=== PATIENT | female | born 1995 | race Caucasian/White ===

== ENCOUNTER 2024-04-11 19:59 | Emergency (ER) | payer OTHER, MEDICARE ==
[2024-04-11] MEDS: 0.9%NACL 1000ML 1,000 ML IV ONE (20:24)
[2024-04-11 20:41] LABS: ABG BASE EXCESS 1.5 mmol/L (-2.0-3.0); ABG HCO3 25.2 mmol/L (21.0-28.0); ABG OXYGEN SATURATION 96.9 % (95.0-99.0); ABG PCO2 36 mmHg (32-45); ABG PH 7.458 (7.350-7.450); CARBON MONOXIDE 0.3; DEVICE COMMENT RA LR; HHb 3.1; PO2, ARTERIAL BG 87.2 mmHg (83.0-108.0)
[2024-04-11 20:50] LABS: BASOPHILS # (AUTO) 0.05 K/uL (0.00-0.20); BASOPHILS % (AUTO) 0.6 % (0.0-5.0); EOSINOPHILS # (AUTO) 0.43 K/uL (0.00-0.70); IMMATURE GRANULOCYTE ABSOLUTE 0.07 K/uL (0-1); LYMPHOCYTES # (AUTO) 2.5 K/uL (1.0-4.8); LYMPHOCYTES % (AUTO) 28.9 % (21.0-51.0); MEAN CORPUSCULAR HEMOGLOBIN 30.3 pg (27.0-33.0); MEAN CORPUSCULAR HGB CONC 34.5 g/dL (32.0-36.0); MEAN CORPUSCULAR VOLUME 87.8 fL (79-99); MONOCYTES # (AUTO) 0.6 K/uL (0.1-1.0); MONOCYTES % (AUTO) 6.8 % (3.0-13.0); NEUTROPHILS % (AUTO) 57.9 % (40.0-77.0); PLATELET COUNT (AUTO) 255 K/uL (130-400); RED BLOOD CELL COUNT(AUTO) 3.76 MIL/uL (4.00-5.50); RED CELL DISTRIBUTION WIDTH 12.4 % (11.0-15.5); WHITE BLOOD COUNT (AUTO) 8.6 K/uL (4.8-10.8)
[2024-04-11 20:54] LABS: APPEARANCE,URINE CLEAR (CLEAR); BILIRUBIN,URINE NEGATIVE (NEGATIVE); COLOR,URINE LIGHT-YELLOW (YELLOW); GLUCOSE, URINE (UA) >=1000 mg/dL (NEGATIVE); KETONES,URINE NEGATIVE (NEGATIVE); LEUKOCYTE ESTERASE ,URINE 75 Leu/uL (NEGATIVE); MUCUS,URINE RARE LPF (None Seen); NITRATE,URINE NEGATIVE (NEGATIVE); OCCULT BLOOD,URINE MODERATE (NEGATIVE); PH,URINE 5.5 (5.0-8.0); PROTEIN,URINE 10 mg/dL (NEGATIVE); SQUAMOUS EPITHELIAL CELL,UR FEW /HPF (0-2); UROBILINOGEN,URINE 0.2 mg/dL (0.2-1.0)
[2024-04-11 21:18] LABS: CARBON DIOXIDE 26 mmol/L (21-32); CHLORIDE 99 mmol/L (101-111); CREATININE 0.8 mg/dL (0.5-1.0); GLOMERULAR FILTR. RATE CALC 104 mL/min (>90); GLUCOSE,RANDOM 224 mg/dL (70-105); POTASSIUM 3.8 mmol/L (3.5-5.1); SODIUM SERUM 137 mmol/L (136-145); UREA NITROGEN, BLOOD 13 mg/dL (7-18)
[2024-04-11 21:22] LABS: ALANINE AMINOTRANSFERASE 105 U/L (12-78); ALBUMIN 3.9 g/dL (3.5-5.0); ASPARTATE AMINOTRANSFERASE 74 U/L (10-37); BILIRUBIN,TOTAL 0.3 mg/dL (0.2-1.0); TOTAL PROTEIN, SERUM 7.6 g/dL (6.0-8.3)
[2024-04-11] MEDS ORDERED: CEPH500B PO (21:36)
[2024-04-11 22:11] VITALS: BP 131/80; PULSE 99; RESP 18; O2SAT 97
== END 2024-04-11 22:19 | disposition home or self-care (01) ==
LOC: EDH 19:59
DX: E11.65 Type 2 diabetes mellitus with hyperglycemia (principal); N39.0 Urinary tract infection, site not specified; Z88.1 Allergy status to other antibiotic agents
CPT/HCPCS: 36415; 36600; 80053; 81001; 82010; 82435; 82803; 82947; 82948; 83605; 84132; 84295; 85018; 85025; 87086

== ENCOUNTER 2024-04-23 23:54 | Emergency (ER) | payer OTHER, MEDICARE ==
[~2024-04-23] VITALS: Ht 165.1 cm; Wt 94.3 kg
[~2024-04-23 23:54] MED LIST: CEPH500B PO
[2024-04-23 23:55] VITALS: BP 124/78; PULSE 90; RESP 16; O2SAT 98
[2024-04-24 00:28] LABS: APPEARANCE,URINE CLOUDY (CLEAR); BILIRUBIN,URINE NEGATIVE (NEGATIVE); COLOR,URINE YELLOW (YELLOW); GLUCOSE, URINE (UA) 70 mg/dL (NEGATIVE); HCG,QUALITATIVE URINE NEGATIVE (NEGATIVE); KETONES,URINE NEGATIVE (NEGATIVE); LEUKOCYTE ESTERASE ,URINE 500 Leu/uL (NEGATIVE); NITRATE,URINE NEGATIVE (NEGATIVE); OCCULT BLOOD,URINE MODERATE (NEGATIVE); PROTEIN,URINE 70 mg/dL (NEGATIVE)
[2024-04-24 00:35] LABS: ADD UA MICROSCOPIC YES
[2024-04-24 00:36] LABS: BACTERIA,URINE MOD /HPF (None Seen); MUCUS,URINE MANY LPF (None Seen); RBC,URINE 26-50 /HPF (0-1); SQUAMOUS EPITHELIAL CELL,UR MANY /HPF (0-2); WBC,URINE 26-50 /HPF (0-1)
[2024-04-24] MEDS ORDERED: CEPH500B PO (00:42)
[2024-04-24] MEDS: CEFTRIAXONE 1G VIAL IM ONE (00:47)
== END 2024-04-24 00:53 | disposition home or self-care (01) ==
LOC: EDH 23:54
DX: N39.0 Urinary tract infection, site not specified (principal); E11.9 Type 2 diabetes mellitus without complications; F84.0 Autistic disorder; I10 Essential (primary) hypertension; F32.A Depression, unspecified; Z88.1 Allergy status to other antibiotic agents; Z79.899 Other long term (current) drug therapy; Z90.89 Acquired absence of other organs
CPT/HCPCS: 99283; 87086; 81001; 81025; 96372; J0696

== ENCOUNTER 2024-04-26 09:56 | Emergency (ER) | payer OTHER, MEDICARE ==
[~2024-04-26] VITALS: Ht 165.1 cm; Wt 94.3 kg
[2024-04-26 09:58] VITALS: BP 144/88; PULSE 98; RESP 18
[2024-04-26 10:38] LABS: BASOPHILS # (AUTO) 0.03 K/uL (0.00-0.20); BASOPHILS % (AUTO) 0.4 % (0.0-5.0); EOSINOPHILS % (AUTO) 1.4 % (0.0-8.0); HEMATOCRIT 35.5 % (36-48); IMMATURE GRANULOCYTE ABSOLUTE 0.02 K/uL (0-1); LYMPHOCYTES # (AUTO) 2.2 K/uL (1.0-4.8); LYMPHOCYTES % (AUTO) 30.7 % (21.0-51.0); MEAN CORPUSCULAR HEMOGLOBIN 30.1 pg (27.0-33.0); MEAN CORPUSCULAR HGB CONC 34.6 g/dL (32.0-36.0); MEAN CORPUSCULAR VOLUME 86.8 fL (79-99); MONOCYTES # (AUTO) 0.4 K/uL (0.1-1.0); MONOCYTES % (AUTO) 6.1 % (3.0-13.0); NEUTROPHILS # (AUTO) 4.3 K/uL (1.8-7.7); NEUTROPHILS % (AUTO) 61.1 % (40.0-77.0); PLATELET COUNT (AUTO) 229 K/uL (130-400); RED BLOOD CELL COUNT(AUTO) 4.09 MIL/uL (4.00-5.50); RED CELL DISTRIBUTION WIDTH 11.8 % (11.0-15.5)
[2024-04-26 10:41] LABS: APPEARANCE,URINE TURBID (CLEAR); BILIRUBIN,URINE NEGATIVE (NEGATIVE); COLOR,URINE LIGHT-ORANGE (YELLOW); GLUCOSE, URINE (UA) NEGATIVE (NEGATIVE); KETONES,URINE 5 mg/dL (NEGATIVE); LEUKOCYTE ESTERASE ,URINE 500 Leu/uL (NEGATIVE); NITRATE,URINE NEGATIVE (NEGATIVE); OCCULT BLOOD,URINE LARGE (NEGATIVE); PH,URINE 5.5 (5.0-8.0); PROTEIN,URINE 100 mg/dL (NEGATIVE); UROBILINOGEN,URINE 0.2 mg/dL (0.2-1.0)
[2024-04-26 10:42] LABS: ADD UA MICROSCOPIC YES
[2024-04-26 10:44] LABS: BACTERIA,URINE FEW /HPF (None Seen); MUCUS,URINE MOD LPF (None Seen); RBC,URINE TNTC /HPF (0-1); SQUAMOUS EPITHELIAL CELL,UR MANY /HPF (0-2); TRANSITIONAL EPI CELLS,URINE MOD /HPF (None Seen); WBC CLUMP FEW /HPF (0-1); WBC,URINE 51-100 /HPF (0-1); YEAST,URINE BUDDING RARE /HPF (None Seen)
[2024-04-26 10:47] LABS: CREATININE 0.6 mg/dL (0.5-1.0); POTASSIUM 3.9 mmol/L (3.5-5.1)
[2024-04-26] MEDS ORDERED: LEVO750T68 PO (11:54)
== END 2024-04-26 12:05 | disposition home or self-care (01) ==
LOC: EDH 09:56
DX: N39.0 Urinary tract infection, site not specified (principal); R31.9 Hematuria, unspecified; E11.9 Type 2 diabetes mellitus without complications; I10 Essential (primary) hypertension; F84.0 Autistic disorder; F32.A Depression, unspecified; Z79.899 Other long term (current) drug therapy; Z88.1 Allergy status to other antibiotic agents; Z90.89 Acquired absence of other organs
CPT/HCPCS: 36415; 74176; 80048; 81001; 81025; 85025

== ENCOUNTER 2024-04-30 06:20 | Emergency (ER) | payer OTHER, MEDICARE ==
[~2024-04-30] VITALS: Ht 165.1 cm; Wt 87.5 kg
[~2024-04-30 06:20] MED LIST changes: +LEVO750T68 PO
[2024-04-30 06:33] VITALS: BP 111/81
[2024-04-30] MEDS: 0.9%NACL 1000ML 1,000 ML IV ONE (07:59)
[2024-04-30 08:11] LABS: APPEARANCE,URINE CLEAR (CLEAR); BILIRUBIN,URINE NEGATIVE (NEGATIVE); COLOR,URINE LIGHT-YELLOW (YELLOW); GLUCOSE, URINE (UA) NEGATIVE (NEGATIVE); KETONES,URINE NEGATIVE (NEGATIVE); LEUKOCYTE ESTERASE ,URINE NEGATIVE Leu/uL (NEGATIVE); NITRATE,URINE NEGATIVE (NEGATIVE); OCCULT BLOOD,URINE MODERATE (NEGATIVE); PROTEIN,URINE NEGATIVE (NEGATIVE); UROBILINOGEN,URINE 0.2 mg/dL (0.2-1.0)
[2024-04-30 08:19] LABS: BACTERIA,URINE RARE /HPF (None Seen); MUCUS,URINE RARE LPF (None Seen); SQUAMOUS EPITHELIAL CELL,UR RARE /HPF (0-2); WBC,URINE 0-1 /HPF (0-1)
[2024-04-30 08:23] LABS: BASOPHILS # (AUTO) 0.03 K/uL (0.00-0.20); BASOPHILS % (AUTO) 0.3 % (0.0-5.0); EOSINOPHILS # (AUTO) 0.05 K/uL (0.00-0.70); EOSINOPHILS % (AUTO) 0.5 % (0.0-8.0); HEMATOCRIT 35.9 % (36-48); IMMATURE GRANULOCYTE ABSOLUTE 0.03 K/uL (0-1); LYMPHOCYTES # (AUTO) 2.1 K/uL (1.0-4.8); MEAN CORPUSCULAR HGB CONC 34.5 g/dL (32.0-36.0); MEAN CORPUSCULAR VOLUME 86.9 fL (79-99); MONOCYTES # (AUTO) 0.4 K/uL (0.1-1.0); NEUTROPHILS # (AUTO) 7.7 K/uL (1.8-7.7); NEUTROPHILS % (AUTO) 74.9 % (40.0-77.0); PLATELET COUNT (AUTO) 216 K/uL (130-400); RED BLOOD CELL COUNT(AUTO) 4.13 MIL/uL (4.00-5.50); RED CELL DISTRIBUTION WIDTH 11.7 % (11.0-15.5); WHITE BLOOD COUNT (AUTO) 10.3 K/uL (4.8-10.8)
[2024-04-30 08:39] LABS: BILIRUBIN,TOTAL 0.4 mg/dL (0.2-1.0); CREATININE 0.7 mg/dL (0.5-1.0); POTASSIUM 4.2 mmol/L (3.5-5.1); TOTAL PROTEIN, SERUM 7.3 g/dL (6.0-8.3)
[2024-04-30 08:58] VITALS: PULSE 95; RESP 17; O2SAT 100
== END 2024-04-30 09:20 | disposition home or self-care (01) ==
LOC: EDH 06:20
DX: E86.0 Dehydration (principal); T43.215A Adverse effect of selective serotonin and norepinephrine reuptake inhibitors, initial encounter; E11.9 Type 2 diabetes mellitus without complications; I10 Essential (primary) hypertension; F84.0 Autistic disorder; Z79.899 Other long term (current) drug therapy; Z88.1 Allergy status to other antibiotic agents; Z90.89 Acquired absence of other organs; Y92.89 Other specified places as the place of occurrence of the external cause
CPT/HCPCS: 99284; 96360; 80053; 85025; 87086; 81001; 36415; J7030

== ENCOUNTER 2024-08-29 15:40 | Emergency (ER) | payer OTHER, MEDICARE ==
[~2024-08-29] VITALS: Ht 167.6 cm; Wt 81.6 kg
[2024-08-29 15:40] VITALS: TEMP 98.4
--- NOTE | 2024-08-29 16:34 | ERN ---
General Chief Complaint: Nausea,Vomiting,Diarrhea Stated Complaint: NAUSEA VOMITING Time Seen by MD: 15:40 Time Seen by Midlevel: 15:40 Source: patient History of Present Illness Initial Comments Patient is a 21-year-old female with a past medical history of type 2 diabetes presenting to the emergency department with nausea and vomiting. Patient states that two days ago she ate a taco from [employer]. Shortly after she developed vomiting. Initially she thought it was because she had eaten the taco but she continued to have episodes of vomiting for the next two days. Denies any fever, diarrhea, bloody stool, or any other symptom at this time. She does report having an insulin pump. Her sugar earlier today was high so she decided to report to the ER for further evaluation given that she has a history of DKA. Allergies: Coded Allergies: azithromycin (Unverified Allergy, Unknown, 04/11/24) Home Meds Active Scripts Famotidine (Pepcid) 20 Mg Tablet, 1 TAB PO BID for 7 Days, #14 TAB 0 Refills Prov:CHRISTIANO FOWLER 08/29/24 Ondansetron (Ondansetron Odt) 4 Mg Tab.rapdis, 4 MG PO BID for 7 Days, #14 TAB Prov:CHRISTIANO FOWLER 08/29/24 Sulfamethoxazole/Trimethoprim (Bactrim Ds Tablet) 800 Mg-160 Mg Tablet, 1 TAB PO BID for 7 Days, #14 TAB 0 Refills Prov:CHRISTIANO FOWLER 08/29/24 Levofloxacin (Levaquin 750Mg Tabs) 750 Mg Tablet, 250 MG PO DAILY for 10 Days, #10 TAB 0 Refills Prov:AMBROCIO SENIOR NP 04/26/24 Cephalexin Monohydrate (Keflex) 500 Mg Cap, 500 MG PO QID for 7 Days, #28 CAP Prov:AKIL STONER MD 04/24/24 Cephalexin Monohydrate (Keflex) 500 Mg Cap, 500 MG PO TID for 7 Days, #21 CAP Prov:AKIL STONER MD 04/11/24 Past Medical History Past Medical History: Anxiety, Diabetes-Type II Medical History Other: AUTISM, PTSD Past Surgical History: None Social History Social History: Negative ROS Dictation CONSTITUTIONAL: Negative except for HPI HEAD/FACE: Negative except for HPI EENT: Negative except for HPI RESPIRATORY: Negative except for HPI GASTROINTESTINAL/ABDOMINAL: Negative except for HPI GENITOURINARY: Negative except for HPI MUSCULOSKELETAL: Negative except for HPI INTEGUMENTARY: Negative except for HPI NEUROLOGICAL/PSYCH: Negative except for HPI HEMATOLOGIC/LYMPHATIC: Negative except for HPI All Systems Negative, Except as noted above. 13 point review of systems assessed and all negative except for above. Physical Exam Physical Exam Dictation Vital Signs reviewed General Appearance: Alert, oriented x 3, no acute distress, well developed, nourished. Head and Face: non-traumatic. Eyes: PERRL, pink conjunctivas, eyelid no trauma, anterior chamber with arcus senilis. Ears: Pinnas intact and no signs of trauma or erythema ear canals clear and no discharge TM no erythema Nose: No discharge, no bleeding. Oropharynx: Mouth normal, tongue pink, pharynx clear,no erythema, tonsils no exudates, no abscesses noted, mucous membrane moist Neck: Supple, non-tender, no thyromegaly, no masses, no JVD, no bruits Breast:Deferred Chest:No tenderness, no crepitus, no paradoxical movement, no retractions Lungs:Clear, well-ventilated, symmetric, no rales, no wheezing, no rhonchi, no stridor, good breath sounds bilaterally Heart: Regular rate, regular rhythm, no murmur, no gallops Vascular: no peripheral edema, Abdomen: Soft, positive bowel sounds, nondistended, no guarding, Mild diffuse abdominal tenderness, no rebound, no masses no hepatomegaly, no splenomegaly, no Lee's sign, no hernias. Rectal: Deferred Genital: Deferred Neurological: Normal speech, motor function intact, sensory function intact Musculoskeletal: Neck nontender, full range of motion, back nontender, full range of motion, Extremities: nontender, full range of motion Skin: Color pink, dry, no turgor, no rash, no lacerations, no abrasions, no contusions. Lymphatic: Deferred Results Laboratory and Microbiology Lab and Micro Result Laboratory Tests Test 08/29/24 17:05 08/29/24 17:57 08/29/24 19:33 08/29/24 20:19 White Blood Count 8.3 K/uL (4.8-10.8) Red Blood Count 4.15 MIL/uL (4.00-5.50) Hemoglobin 12.3 g/dL (12.0-16.0) Hematocrit 37.1 % (36-48) Mean Corpuscular Volume 89.4 fL (79-99) Mean Corpuscular Hemoglobin 29.6 pg (27.0-33.0) Mean Corpuscular Hemoglobin Concent 33.2 g/dL (32.0-36.0) Red Cell Distribution Width 12.2 % (11.0-15.5) Platelet Count 209 K/uL (130-400) Mean Platelet Volume 9.8 fL (7.5-10.5) Immature Granulocyte % (Auto) 0.2 % (0-1) Neutrophils (%) (Auto) 65.6 % (40.0-77.0) Lymphocytes (%) (Auto) 25.3 % (21.0-51.0) Monocytes (%) (Auto) 5.9 % (3.0-13.0) Eosinophils (%) (Auto) 2.2 % (0.0-8.0) Basophils (%) (Auto) 0.8 % (0.0-5.0) Neutrophils # (Auto) 5.5 K/uL (1.8-7.7) Lymphocytes # (Auto) 2.1 K/uL (1.0-4.8) Monocytes # (Auto) 0.5 K/uL (0.1-1.0) Eosinophils # (Auto) 0.18 K/uL (0.00-0.70) Basophils # (Auto) 0.07 K/uL (0.00-0.20) Absolute Immature Granulocyte (auto 0.02 K/uL (0-1) Nucleated Red Blood Cells 0.0 % (0.0-0.19) Sodium Level 131 mmol/L (136-145) L Potassium Level 4.1 mmol/L (3.5-5.1) Chloride Level 96 mmol/L (101-111) L Carbon Dioxide Level 29 mmol/L (21-32) Blood Urea Nitrogen 9 mg/dL (7-18) Creatinine 0.9 mg/dL (0.5-1.0) Glomerular Filtration Rate Calc 89 mL/min (>90) Random Glucose 419 mg/dL (70-105) *H Total Calcium 9.0 mg/dL (8.5-10.1) Total Bilirubin 0.6 mg/dL (0.2-1.0) Direct Bilirubin 0.1 mg/dL (0.0-0.3) Aspartate Amino Transf (AST/SGOT) 40 U/L (10-37) H Alanine Aminotransferase (ALT/SGPT) 61 U/L (12-78) Alkaline Phosphatase 116 U/L (50-136) Total Protein 7.5 g/dL (6.0-8.3) Albumin 4.0 g/dL (3.5-5.0) Lipase 45 U/L (16-77) Serum Test, Qualitative NEGATIVE (NEGATIVE) Whole Blood Ketones Quantitative 0.8 mmol/L (0.0-0.6) H Whole Blood Glucose 219 MG/DL (70-110) H Urine Color YELLOW (YELLOW) Urine Appearance CLOUDY (CLEAR) H Urine pH 6.0 (5.0-8.0) Urine Specific [place] 1.040 (1.001-1.031) Urine Protein TRACE mg/dL (NEGATIVE) H Urine Glucose (UA) >=1000 mg/dL (NEGATIVE) H Urine Ketones 5 mg/dL (NEGATIVE) H Urine Occult Blood MODERATE (NEGATIVE) H Urine Nitrate NEGATIVE (NEGATIVE) Urine Bilirubin NEGATIVE mg/dL (NEGATIVE) Urine Urobilinogen 2.0 mg/dL (0.2-1.0) H Urine Leukocyte Esterase 500 Meredith/uL (NEGATIVE) H Urine RBC 11-25 /HPF (0-1) H Urine WBC TNTC /HPF (0-1) H Urine Squamous Epithelial Cells MANY /HPF (0-2) Urine Bacteria MOD /HPF (None Seen) Test 08/29/24 20:26 SARS-CoV-2, RNA, NAAT NEGATIVE SARS CoV-2 Labs Reviewed?: Yes MDM MDM: Patient is a 21-year-old female with a past medical history of type 2 diabetes presenting to the emergency department with nausea and vomiting. Patient states that two days ago she ate a taco from [employer]. Shortly after she developed vomiting. Initially she thought it was because she had eaten the taco but she continued to have episodes of vomiting for the next two days. Denies any fever, diarrhea, bloody stool, or any other symptom at this time. She does report having an insulin pump. Her sugar earlier today was high so she decided to report to the ER for further evaluation given that she has a history of DKA. On arrival patient is in no acute distress. She is reporting some mild diffuse abdominal pain. On physical examination there is some mild diffuse abdominal tenderness with no rebound or guarding. Initial vital signs are remarkable for a temperature of 98.4. A heart rate of 93 beats per minute. A respiratory rate of 18 breaths per minute. A blood pressure of 119/74. O2 saturation is 98% her initial CBC is unremarkable. There is a normal white blood cell count of 8.3. Hemoglobin is stable at 12.3. Platelets are normal at 209. Chemistries show a random glucose of 419 with pseudohyponatremia of 131 and a chloride of 96. Bicarb was normal and patient has a normal anion gap. Ketones are slightly elevated at 0.8. Patient is not in DKA at this time. Patient does report administering insulin through her insulin pump. Repeat whole blood glucose is 219. She was not given the 8 units of insulin that I had ordered. She was given 1 L of IV fluids along with Zofran and Pepcid. On repeat examination she does report feeling significantly improved. Her urinalysis is consistent with a urinary tract infection. Patient was given 1 g of Rocephin IV and will be discharged home with Bactrim. Differential diagnosis: Uncontrolled diabetes, DKA, gastroenteritis, urinary tract infection There are no social concerns with this patient. Prescription drug management Prescriptions will include: Bactrim, Zofran, Pepcid Medical management and examination interpretation discussions were had by me with other qualified healthcare professionals as indicated for the patient's care. ED Course Orders Procedure Category Date Status Time Cbc With Differential LAB 08/29/24 Complete 15:50 Basic Metabolic Panel LAB 08/29/24 Complete 15:50 Hepatic Function Panel LAB 08/29/24 Complete 15:50 Urinalysis Profile LAB 08/29/24 Complete 15:50 Testing, LAB 08/29/24 Complete Serum Hcg 15:50 Lipase LAB 08/29/24 Complete 15:50 Ketone Blood LAB 08/29/24 Complete Quantitative 17:45 0.9%Nacl 1000ml (Ns PHA 08/29/24 Complete 1000ml) 18:00 Insulin Regular, PHA 08/29/24 Complete Human 3ml (Humulin R 18:00 Ondansetron 4mg Inj PHA 08/29/24 Complete (Zofran 4mg Inj) 20:00 Famotidine 20mg Vial PHA 08/29/24 Complete (Pepcid 20mg Vial) 20:00 Covid Rna Naat LAB 08/29/24 Complete 20:25 Culture Urine ERICK 08/29/24 Complete 21:23 Ceftriaxone 1g Vial PHA 08/29/24 Complete (Rocephine 1g Inj) 21:30 Current Medications Medications (Trade) Dose Ordered Sig/Jeramy Route PRN Reason Start Time Stop Time Status Last Admin Dose Admin Ceftriaxone Sodium (ROCEphine 1G INJ) 1 gm ONCE ONCE IVPB 08/29/24 21:30 08/29/24 21:31 DC 08/29/24 22:10 Famotidine (Pepcid 20mg Vial) 20 mg ONCE ONCE IV 08/29/24 20:00 08/29/24 20:01 DC 08/29/24 20:26 Insulin Human Regular (humuLIN R 100 UNIT/ML 3ML) 8 unit ONCE ONCE IV 08/29/24 18:00 08/29/24 18:01 DC Ondansetron HCl (zoFRAN 4MG INJ) 4 mg ONCE ONCE IVP 08/29/24 20:00 08/29/24 20:01 DC 08/29/24 20:26 Sodium Chloride 1,000 ml @ 0 mls/hr ONCE ONCE IV 08/29/24 18:00 08/29/24 18:01 DC 08/29/24 20:02 Vital Signs Date Time Temp Pulse Resp B/P (MAP) Pulse Ox O2 Delivery O2 Flow Rate FiO2 08/29/24 22:19 75 16 130/82 100 Room Air* 0 08/29/24 19:55 77 16 116/71 99 Room Air* 0 08/29/24 15:40 98.4 93 18 119/74 98 Room Air 0 DX & DISP Disposition: Discharge Departure Impression: Primary Impression: Gastroenteritis Additional Impressions: Urinary tract infection, Hyperglycemia Condition: Stable Scripts Famotidine (Pepcid) 20 Mg Tablet 1 TAB PO BID for 7 Days, #14 TAB 0 Refills Prov: CHRISTIANO FOWLER 08/29/24 Ondansetron (Ondansetron Odt) 4 Mg Tab.rapdis 4 MG PO BID for 7 Days, #14 TAB Prov: CHRISTIANO FOWLER 08/29/24 Sulfamethoxazole/Trimethoprim (Bactrim Ds Tablet) 800 Mg-160 Mg Tablet 1 TAB PO BID for 7 Days, #14 TAB 0 Refills Prov: CHRISTIANO FOWLER 08/29/24 Additional Instructions: Your blood work today is stable. Your urinalysis is consistent with infection. I have given you a prescription for antibiotics for outpatient management. Follow up with your primary care doctor in 2-3 days for repeat evaluation. Return to the ER for any new or worsening symptoms. Referrals: NONE (PCP) Time of Disposition: 21:47 I have reviewed the case, and I agree with, Diagnosis and Plan I performed the substantive portion of the visit. I have reviewed and personally made and approve the management plan that is documented in the note by myself or the BRITTANY. I acknowledge for responsibility for the patient's management plan. CHRISTIANO FOWLER Aug 29, 2024 16:34 FRANCISCO PATTERSON DO Aug 31, 2024 09:07
[2024-08-29 17:18] LABS: BASOPHILS # (AUTO) 0.07 K/uL (0.00-0.20); BASOPHILS % (AUTO) 0.8 % (0.0-5.0); EOSINOPHILS # (AUTO) 0.18 K/uL (0.00-0.70); EOSINOPHILS % (AUTO) 2.2 % (0.0-8.0); HEMATOCRIT 37.1 % (36-48); IMMATURE GRANULOCYTE ABSOLUTE 0.02 K/uL (0-1); LYMPHOCYTES # (AUTO) 2.1 K/uL (1.0-4.8); LYMPHOCYTES % (AUTO) 25.3 % (21.0-51.0); MEAN CORPUSCULAR HEMOGLOBIN 29.6 pg (27.0-33.0); MEAN CORPUSCULAR HGB CONC 33.2 g/dL (32.0-36.0); MEAN CORPUSCULAR VOLUME 89.4 fL (79-99); MONOCYTES # (AUTO) 0.5 K/uL (0.1-1.0); MONOCYTES % (AUTO) 5.9 % (3.0-13.0); NEUTROPHILS # (AUTO) 5.5 K/uL (1.8-7.7); NEUTROPHILS % (AUTO) 65.6 % (40.0-77.0); PLATELET COUNT (AUTO) 209 K/uL (130-400); RED BLOOD CELL COUNT(AUTO) 4.15 MIL/uL (4.00-5.50); RED CELL DISTRIBUTION WIDTH 12.2 % (11.0-15.5); WHITE BLOOD COUNT (AUTO) 8.3 K/uL (4.8-10.8)
[2024-08-29 17:37] LABS: BILIRUBIN,DIRECT 0.1 mg/dL (0.0-0.3); BILIRUBIN,TOTAL 0.6 mg/dL (0.2-1.0); CREATININE 0.9 mg/dL (0.5-1.0); POTASSIUM 4.1 mmol/L (3.5-5.1); TOTAL PROTEIN, SERUM 7.5 g/dL (6.0-8.3)
[2024-08-29] MEDS: INSULIN humuLIN R 100 UNIT/ML 3ML IV ONE (18:00)
--- NOTE | 2024-08-29 19:18 | NUR ---
CARE ASSUMED AT THIS TIME
[2024-08-29] MEDS: 0.9%NACL 1000ML 1,000 ML IV ONE (20:02)
[2024-08-29] MEDS: FAMOTIDINE 20MG VIAL IV ONE (20:26)
[2024-08-29] MEDS: ondanSETRON 4MG INJ IVP ONE (20:26)
[2024-08-29 21:21] LABS: APPEARANCE,URINE CLOUDY (CLEAR); BILIRUBIN,URINE NEGATIVE (NEGATIVE); COLOR,URINE YELLOW (YELLOW); GLUCOSE, URINE (UA) >=1000 mg/dL (NEGATIVE); KETONES,URINE 5 mg/dL (NEGATIVE); LEUKOCYTE ESTERASE ,URINE 500 Leu/uL (NEGATIVE); NITRATE,URINE NEGATIVE (NEGATIVE); OCCULT BLOOD,URINE MODERATE (NEGATIVE)
[2024-08-29 21:22] LABS: ADD UA MICROSCOPIC YES; PROTEIN,URINE TRACE mg/dL (NEGATIVE)
[2024-08-29 21:24] LABS: BACTERIA,URINE MOD /HPF (None Seen); MUCUS,URINE MANY LPF (None Seen); SQUAMOUS EPITHELIAL CELL,UR MANY /HPF (0-2); WBC,URINE TNTC /HPF (0-1)
[2024-08-29 21:44] LABS: SARS-CoV-2, RNA, NAAT NEGATIVE SARS CoV-2 (NEGATIVE)
[2024-08-29] MEDS ORDERED: SULF1TAB42 PO (21:47)
[2024-08-29] MEDS ORDERED: FAMO-136 PO (21:47)
[2024-08-29] MEDS ORDERED: ONDA-243 PO (21:47)
[2024-08-29] MEDS: cefTRIAXone 1G VIAL IVPB ONE (22:10)
[2024-08-29 22:19] VITALS: BP 130/82; PULSE 75; RESP 16; O2SAT 100
== END 2024-08-29 23:06 | disposition home or self-care (01) ==
LOC: EDH 15:40
DX: K52.9 Noninfective gastroenteritis and colitis, unspecified (principal); N39.0 Urinary tract infection, site not specified; E11.65 Type 2 diabetes mellitus with hyperglycemia; F84.0 Autistic disorder; Z20.822 Contact with and (suspected) exposure to COVID-19; Z79.4 Long term (current) use of insulin; Z79.899 Other long term (current) drug therapy; Z88.1 Allergy status to other antibiotic agents
CPT/HCPCS: 99284; 96365; 96361; 96375; 87635; 80076; 80048; 84703; 83690; 85025; 87086; 82948; 82010; 81001; 36415; J3490; J7030; J0696; J2405

== ENCOUNTER 2024-10-31 18:32 | Emergency (ER) | payer MEDICARE, OTHER ==
[~2024-10-31] VITALS: Ht 167.6 cm; Wt 79.4 kg
[~2024-10-31 18:32] MED LIST changes: +FAMO-136 PO; +ONDA-243 PO; +SULF1TAB42 PO
[2024-10-31 20:12] VITALS: BP 152/88; PULSE 76; RESP 18; TEMP 98.4; O2SAT 98
[2024-10-31 20:35] LABS: BASOPHILS # (AUTO) 0.01 K/uL (0.00-0.20); BASOPHILS % (AUTO) 0.1 % (0.0-5.0); HEMATOCRIT 33.5 % (36-48); IMMATURE GRANULOCYTE ABSOLUTE 0.03 K/uL (0-1); LYMPHOCYTES # (AUTO) 0.7 K/uL (1.0-4.8); LYMPHOCYTES % (AUTO) 8.6 % (21.0-51.0); MEAN CORPUSCULAR HEMOGLOBIN 29.8 pg (27.0-33.0); MEAN CORPUSCULAR VOLUME 87.7 fL (79-99); MONOCYTES # (AUTO) 0.2 K/uL (0.1-1.0); MONOCYTES % (AUTO) 2.2 % (3.0-13.0); NEUTROPHILS # (AUTO) 7.1 K/uL (1.8-7.7); NEUTROPHILS % (AUTO) 88.7 % (40.0-77.0); PLATELET COUNT (AUTO) 216 K/uL (130-400); RED BLOOD CELL COUNT(AUTO) 3.82 MIL/uL (4.00-5.50); RED CELL DISTRIBUTION WIDTH 12.9 % (11.0-15.5)
[2024-10-31] MEDS: 0.9%NACL 1000ML 1,000 ML IV ONE (20:37)
[2024-10-31 20:48] LABS: CREATININE 0.8 mg/dL (0.5-1.0); MAGNESIUM 1.8 mg/dL (1.80-2.40); POTASSIUM 3.9 mmol/L (3.5-5.1)
[2024-10-31 20:50] LABS: ADD UA MICROSCOPIC YES; APPEARANCE,URINE CLEAR (CLEAR); BILIRUBIN,URINE NEGATIVE (NEGATIVE); COLOR,URINE COLORLESS (YELLOW); GLUCOSE, URINE (UA) >=1000 mg/dL (NEGATIVE); KETONES,URINE NEGATIVE (NEGATIVE); LEUKOCYTE ESTERASE ,URINE NEGATIVE Leu/uL (NEGATIVE); NITRATE,URINE NEGATIVE (NEGATIVE); OCCULT BLOOD,URINE NEGATIVE (NEGATIVE); PROTEIN,URINE NEGATIVE (NEGATIVE); UROBILINOGEN,URINE 0.2 mg/dL (0.2-1.0)
[2024-10-31 20:52] LABS: RBC,URINE 0-1 /HPF (0-1); SQUAMOUS EPITHELIAL CELL,UR RARE /HPF (0-2); WBC,URINE 0-1 /HPF (0-1)
--- NOTE | 2024-10-31 21:09 | ERN ---
ED Note History of Present Illness Stated Complaint: HYPERGLYCEMIA Chief Complaint: Hyperglycemia Time Seen by MD: 18:42 Time Seen by Midlevel: 18:42 Dictation: The patient is a 29-year-old female with a history of type 1 diabetes who presents to the emergency department with complaints of elevated blood sugars. Patient reports that she had a tooth removed this morning. Denies any fevers, nausea or vomiting. Reports increased thirst. Patient reports she administered in the via her pump. No other complaints reported. Allergies: Coded Allergies: azithromycin (Unverified Allergy, Unknown, 04/11/24) Home Meds Active Scripts Famotidine (Pepcid) 20 Mg Tablet, 1 TAB PO BID for 7 Days, #14 TAB 0 Refills Prov:CHRISTIANO FOWLER 08/29/24 Ondansetron (Ondansetron Odt) 4 Mg Tab.rapdis, 4 MG PO BID for 7 Days, #14 TAB Prov:CHRISTIANO FOWLER 08/29/24 Sulfamethoxazole/Trimethoprim (Bactrim Ds Tablet) 800 Mg-160 Mg Tablet, 1 TAB PO BID for 7 Days, #14 TAB 0 Refills Prov:CHRISTIANO FOWLER 08/29/24 Levofloxacin (Levaquin 750Mg Tabs) 750 Mg Tablet, 250 MG PO DAILY for 10 Days, #10 TAB 0 Refills Prov:AMBROCIO SENIOR NP 04/26/24 Cephalexin Monohydrate (Keflex) 500 Mg Cap, 500 MG PO QID for 7 Days, #28 CAP Prov:AKIL STONER MD 04/24/24 Cephalexin Monohydrate (Keflex) 500 Mg Cap, 500 MG PO TID for 7 Days, #21 CAP Prov:AKIL STONER MD 04/11/24 Past Medical History Past Medical History: Anxiety, Bipolar, Depression, Diabetes-Type II Additional Past Medical Hx: AUSTISM SPECTRUM, PTSD Surgical History: Other Surgical History Other: ORAL SURGERY AND CONTROL IMPLANT Social History: Negative RN Note Reviewed/Agreed w/PFSH: Yes Review of System Dictation Constitutional: Negative for fever,chills, and weight loss Eyes: Negative for injury, pain,redness, and discharge ENT: Negative for injury,pain or swelling Cardiovascular: Negative for chest pain, palpitations, and edema Respiratory: Negative for shortness of breath, cough, and wheezing, Abdomen/GI: Negative for abdominal pain, nausea, vomiting, diarrhea, and constipation positive for increased thirst Back: Negative for injury and pain : Negative for injury, bleeding and discharge MS/Extremity: Negative for injury and deformity Skin: Negative for rash, and discoloration Neuro: Negative for headache, weakness, numbness, tingling, and seizure Psych: Negative for suicide ideation, homicidal ideation, and hallucinations Initial Vital Sign VS Vital Signs Date Time Temp Pulse Resp B/P (MAP) Pulse Ox O2 Delivery O2 Flow Rate FiO2 10/31/24 18:34 97.9 76 17 151/96 100 Room Air 0 10/31/24 20:12 21 Physical Exam Dictation Vital Signs reviewed General Appearance: Alert, oriented x 3, no acute distress, well developed, nourished. Head and Face: non-traumatic. Eyes: PERRL, pink conjunctivas, eyelid no trauma, anterior chamber with arcus senilis. Ears: Pinnas intact and no signs of trauma or erythema ear canals clear and no d ischarge TM no erythema Nose: No discharge, no bleeding. Oropharynx: Mouth normal, tongue pink. pharynx clear,no erythema, tonsils no exudates, no abscesses noted, mucous membrane moist Neck: Supple, non-tender, no thyromegaly, no masses, no JVD, no bruits Breast:Deferred Chest:No tenderness, no crepitus, no paradoxical movement, no retractions Lungs:Clear, well-ventilated, symmetric, no rales, no wheezing, no rhonchi, no stridor, good breath sounds bilaterally Heart: Regular rate, regular rhythm, no murmur, no gallops Vascular: no peripheral edema, Abdomen: Soft, positive bowel sounds, nondistended, no guarding, nontender, no rebound, no masses no hepatomegaly, no splenomegaly, no Lee's sign, no hernias. Rectal: Deferred Genital: Deferred Neurological: Normal speech, motor function intact, sensory function intact Musculoskeletal: Neck nontender, full range of motion, back nontender, full range of motion, Extremities: nontender, full range of motion Skin: Color pink, dry, no turgor, no rash, no lacerations, no abrasions, no contusions. Lymphatic: Deferred Results (Laboratory/Radiology) Laboratory/Radiology Laboratory Tests Test 10/31/24 20:22 10/31/24 20:26 White Blood Count 8.0 K/uL (4.8-10.8) Red Blood Count 3.82 MIL/uL (4.00-5.50) L Hemoglobin 11.4 g/dL (12.0-16.0) L Hematocrit 33.5 % (36-48) L Mean Corpuscular Volume 87.7 fL (79-99) Mean Corpuscular Hemoglobin 29.8 pg (27.0-33.0) Mean Corpuscular Hemoglobin Concent 34.0 g/dL (32.0-36.0) Red Cell Distribution Width 12.9 % (11.0-15.5) Platelet Count 216 K/uL (130-400) Mean Platelet Volume 9.8 fL (7.5-10.5) Immature Granulocyte % (Auto) 0.4 % (0-1) Neutrophils (%) (Auto) 88.7 % (40.0-77.0) H Lymphocytes (%) (Auto) 8.6 % (21.0-51.0) L Monocytes (%) (Auto) 2.2 % (3.0-13.0) L Eosinophils (%) (Auto) 0.0 % (0.0-8.0) Basophils (%) (Auto) 0.1 % (0.0-5.0) Neutrophils # (Auto) 7.1 K/uL (1.8-7.7) Lymphocytes # (Auto) 0.7 K/uL (1.0-4.8) L Monocytes # (Auto) 0.2 K/uL (0.1-1.0) Eosinophils # (Auto) 0.00 K/uL (0.00-0.70) Basophils # (Auto) 0.01 K/uL (0.00-0.20) Absolute Immature Granulocyte (auto 0.03 K/uL (0-1) Nucleated Red Blood Cells 0.0 % (0.0-0.19) White Cell Morphology Comment See comments Sodium Level 132 mmol/L (136-145) L Potassium Level 3.9 mmol/L (3.5-5.1) Chloride Level 101 mmol/L (101-111) Carbon Dioxide Level 27 mmol/L (21-32) Blood Urea Nitrogen 14 mg/dL (7-18) Creatinine 0.8 mg/dL (0.5-1.0) Glomerular Filtration Rate Calc 103 mL/min (>90) Random Glucose 360 mg/dL (70-105) H Total Calcium 8.1 mg/dL (8.5-10.1) L Magnesium Level 1.80 mg/dL (1.80-2.40) Serum Test, Qualitative NEGATIVE (NEGATIVE) Urine Color COLORLESS (YELLOW) Urine Appearance CLEAR (CLEAR) Urine pH 7.0 (5.0-8.0) Urine Specific [place] 1.025 (1.001-1.031) Urine Protein NEGATIVE mg/dL (NEGATIVE) Urine Glucose (UA) >=1000 mg/dL (NEGATIVE) H Urine Ketones NEGATIVE mg/dL (NEGATIVE) Urine Occult Blood NEGATIVE (NEGATIVE) Urine Nitrate NEGATIVE (NEGATIVE) Urine Bilirubin NEGATIVE mg/dL (NEGATIVE) Urine Urobilinogen 0.2 mg/dL (0.2-1.0) Urine Leukocyte Esterase NEGATIVE Meredith/uL Urine RBC 0-1 /HPF (0-1) Urine WBC 0-1 /HPF (0-1) Urine Squamous Epithelial Cells RARE /HPF (0-2) Urine Bacteria None /HPF (None Seen) Labs Reviewed?: Yes ED Course ED Course Orders Procedure Category Date Status Time Cbc With Differential LAB 10/31/24 Complete 19:28 Urinalysis Profile LAB 10/31/24 Complete 19:28 0.9%Nacl 1000ml (Ns PHA 10/31/24 Complete 1000ml) 19:30 Basic Metabolic Panel LAB 10/31/24 Complete 19:28 Testing, LAB 10/31/24 Complete Serum Hcg 19:28 Magnesium LAB 10/31/24 Complete 19:28 Insulin Regular, PHA 10/31/24 Complete Human 3ml (Humulin R 21:30 Current Medications Medications (Trade) Dose Ordered Sig/Jeramy Route PRN Reason Start Time Stop Time Status Last Admin Dose Admin Insulin Human Regular (humuLIN R 100 UNIT/ML 3ML) 5 unit ONCE ONCE IV 10/31/24 21:30 10/31/24 21:07 DC Sodium Chloride 1,000 ml @ 0 mls/hr ONCE ONCE IV 10/31/24 19:30 10/31/24 19:31 DC 10/31/24 20:37 Vital Signs Date Time Temp Pulse Resp B/P (MAP) Pulse Ox O2 Delivery O2 Flow Rate FiO2 10/31/24 20:12 98.4 76 18 152/88 98 Room Air* 0 21 10/31/24 18:34 97.9 76 17 151/96 100 Room Air 0 Medical Decision Making MDM The patient is a 29-year-old female with a history of type 1 diabetes who presents to the emergency department with complaints of elevated blood sugars. Patient reports that she had a tooth removed this morning. Denies any fevers, nausea or vomiting. Reports increased thirst. Patient reports she administered in the via her pump. No other complaints reported. CBC showed no leukocytosis, mild normocytic anemia, chemistry showed mild hyperglycemia, a gap of four, no DKA, mild hyponatremia patient received a L of fluids in ER. Urinalysis unremarkable. Patient in no acute distress. Will be discharged to follow up with PCP. Differential diagnosis: DKA, hyperglycemia, dehydration, electrolyte imbalance Need for hospitalization: Patient does not meet criteria for hospitalization. There are no social concerns with this patient. DX & DISP Disposition: Discharge Departure Impression: Primary Impression: Hyperglycemia Additional Impression: Uncontrolled diabetes mellitus with hyperglycemia Condition: Stable Additional Instructions: Please follow up with your PCP in 1-2 days. Continue using your insulin treatment. Stay well hydrated at home. Symptoms worsen please return to ER. FOLLOW-UP WITH PRIMARY CARE PROVIDER IN 1 TO 2 DAYS. TAKE MEDICATIONS DIRECTED HERE IN THE EMERGENCY ROOM. OKAY TO CONTINUE HOME MEDICATIONS UNLESS OTHERWISE DISCUSSED DURING YOUR VISIT IN THE EMERGENCY ROOM TODAY. RETURN TO YOUR NEAREST EMERGENCY ROOM IF SYMPTOMS WORSEN OR IF THERE IS NO IMPROVEMENT. CALL 911 IF YOU NEED IMMEDIATE ASSISTANCE. TAKE TYLENOL OR MOTRIN [id number] NEEDED AND IF NO CONTRAINDICATIONS ARE PRESENT. INCREASE ORAL HYDRATION. A WOUND CULTURE OR URINE CULTURE WAS ORDERED HERE IN THE EMERGENCY ROOM DEPARTMENT PLEASE FOLLOW-UP WITH PRIMARY CARE PROVIDER AND ADVISE THEM TO GET REPEAT PORTS FROM OUR FACILITY. IF YOU HAD ANY VANDANA WRAP/SPLINTS THAT WERE APPLIED HERE, PLEASE DO NOT REMOVE THEM UNTIL YOU SEE YOUR PRIMARY CARE OR SPECIALTY. Referrals: GRACE HULL (PCP) Time of Disposition: 21:09 I have reviewed the case, and I agree with, Diagnosis and Plan KRYSTAL MCINTOSH Oct 31, 2024 21:09
[2024-10-31] MEDS ORDERED: INSULIN humuLIN R 100 UNIT/ML 3ML IV ONE (21:30)
--- NOTE | 2024-10-31 22:17 | NUR ---
Spoke to Brunilda VELAZQUEZ, about pending discharge for patient, patient upset she is being discharged. No futher orders given.
== END 2024-10-31 22:24 | disposition home or self-care (01) ==
LOC: EDH 18:32
DX: E11.65 Type 2 diabetes mellitus with hyperglycemia (principal); F31.9 Bipolar disorder, unspecified; Z88.1 Allergy status to other antibiotic agents
CPT/HCPCS: 99284; 96360; 83735; 80048; 84703; 85025; 81001; 36415; J7030

== ENCOUNTER 2024-12-23 10:34 | Emergency (ER) | payer OTHER ==
[~2024-12-23] VITALS: Ht 165.1 cm; Wt 77.1 kg
[2024-12-23 10:39] VITALS: BP 109/68; PULSE 96; RESP 18; TEMP 97.6
[2024-12-23] MEDS ORDERED: AMOX500C2 PO (11:02)
--- NOTE | 2024-12-23 11:02 | ERN ---
General Chief Complaint: Sore Throat Stated Complaint: THROAT ISSUES Time Seen by MD: 10:37 Source: patient History of Present Illness Initial Comments PATIENT IS A 29-YEAR-OLD FEMALE COMING IN TO BE EVALUATED FOR THROAT DISCOMFORT. PATIENT STATES THAT HE HAS BEEN HAVING THESE SYMPTOMS FOR A COUPLE OF DAYS. PATIENT ALSO STATES THAT SHE HAS BEEN HAVING NASAL CONGESTION. Allergies: Coded Allergies: azithromycin (Unverified Allergy, Unknown, 04/11/24) Home Meds Active Scripts Famotidine (Pepcid) 20 Mg Tablet, 1 TAB PO BID for 7 Days, #14 TAB 0 Refills Prov:CHRISTIANO FOWLER 08/29/24 Ondansetron (Ondansetron Odt) 4 Mg Tab.rapdis, 4 MG PO BID for 7 Days, #14 TAB Prov:CHRISTIANO FOWLER 08/29/24 Sulfamethoxazole/Trimethoprim (Bactrim Ds Tablet) 800 Mg-160 Mg Tablet, 1 TAB PO BID for 7 Days, #14 TAB 0 Refills Prov:CHRISTIANO FOWLER 08/29/24 Levofloxacin (Levaquin 750Mg Tabs) 750 Mg Tablet, 250 MG PO DAILY for 10 Days, #10 TAB 0 Refills Prov:AMBROCIO SENIOR NP 04/26/24 Cephalexin Monohydrate (Keflex) 500 Mg Cap, 500 MG PO QID for 7 Days, #28 CAP Prov:AKIL STONER MD 04/24/24 Cephalexin Monohydrate (Keflex) 500 Mg Cap, 500 MG PO TID for 7 Days, #21 CAP Prov:AKIL STONER MD 04/11/24 Past Medical History Past Medical History: Anxiety, Bipolar, Depression, Diabetes-Type II Medical History Other: AUSTISM SPECTRUM, PTSD Past Surgical History: Other Surgical History Other: ORAL SURGERY AND CONTROL IMPLANT Social History Social History: Negative ROS Dictation CONSTITUTIONAL: NO CHILLS, NO FEVER, NO WEAKNESS, NO DIAPHORESIS, NO MALAISE. HEAD/FACE: NO SIGNS OF TRAUMA. EENT: NO EYE PAIN, NO BLURRED VISION, NO TEARING, NO DOUBLE VISION, NO EAR PAIN, NO EAR DISCHARGE, NO NOSE PAIN, NO NASAL CONGESTION, THROAT PAIN, NO THROAT SWELLING, NO MOUTH PAIN. RESPIRATORY: NO COUGH, NO ORTHOPNEA, NO SOB, NO STRIDOR, NO WHEEZING. CARDIOVASCULAR: NO CHEST PAIN, NO EDEMA, NO PALPITATIONS, NO SYNCOPE. GASTROINTESTINAL/ABDOMINAL: NO ABDOMINAL PAIN, NO CONSTIPATION, NO DIARRHEA, NO NAUSEA, NO VOMITING. GENITOURINARY: NO ABNORMAL DISCHARGE, NO DYSURIA, NO FREQUENT URINATION, NO HEMATURIA. NO COMPLAINTS OF PAIN IN THE GENITALS. MUSCULOSKELETAL: NO BACK PAIN, NO GOUT, NO JOINT PAIN, NO JOINT SWELLING, NO MUSCLE PAIN, NO MUSCLE STIFFNESS, NO NECK PAIN. INTEGUMENTARY: NO CHANGE IN COLOR, NO CHANGE IN HAIR/NAILS, NO DRYNESS, NO LESION, NO LUMPS, NO RASH. NEUROLOGICAL/PSYCH: NO ANXIETY, NOT DEPRESSED, NO EMOTIONAL PROBLEM, NO HEADACHE, NO NUMBNESS, NO PRE-EXISTING DEFICIT, NO HISTORY OF SEIZURES, NO TREMORS, NO WEAKNESS. HEMATOLOGIC/LYMPHATIC: NOT ANEMIC, NO HISTORY OF BLOOD CLOTS, NO APPARENT BLEEDING, NO BRUISING, GLANDS NOT SWOLLEN. ALL SYSTEMS NEGATIVE, EXCEPT NOTED. Physical Exam Physical Exam Dictation VITAL SIGNS: REVIEWED. GENERAL APPEARANCE: ALERT, ORIENTED X3, NO ACUTE DISTRESS, OBESE. HEAD AND FACE: NON-TRAUMATIC. EYES: PERRL, PINK CONJUNCTIVAS, EYELID NO TRAUMA, ANTERIOR CHAMBER CLEAR. EARS: PINNAS INTACT AND NO SIGNS OF TRAUMA OR ERYTHEMA. EAR CANALS CLEAR AND NO DISCHARGE. TMS NO ERYTHEMA. NOSE: NO DISCHARGE, NO BLEEDING. OROPHARYNX: MOUTH NORMAL, TEETH NO CARIES, TONGUE PINK. PHARYNX ERYTHEMA. TONSILS NO EXUDATES, NO ABSCESSES NOTED. MUCOUS MEMBRANE MOIST. NECK: SUPPLE, NON-TENDER, NO THYROMEGALY, NO MASSES, NO JVD, NO BRUITS. BREAST: DEFERRED. CHEST: NO TENDERNESS, NO CREPITUS, NO PARADOXICAL MOVEMENT, NO RETRACTIONS. LUNGS: CLEAR, WELL-VENTILATED, SYMMETRIC, NO RALES, NO WHEEZING, NO RHONCHI, NO STRIDOR, GOOD BREATH SOUNDS BILATERALLY. HEART: REGULAR RATE, REGULAR RHYTHM, NO MURMUR, NO GALLOPS. VASCULAR: NO PERIPHERAL EDEMA. ABDOMEN: SOFT, POSITIVE BOWEL SOUNDS, NONDISTENDED, NO GUARDING, NONTENDER, NO REBOUND, NO MASSES NO HEPATOMEGALY, NO SPLENOMEGALY, NO VILLALOBOS'S SIGN, NO HERNIAS. RECTAL: DEFERRED. GENITAL: DEFERRED. NEUROLOGICAL: NORMAL SPEECH, GROSS MOTOR FUNCTION INTACT, GROSS SENSORY FUNCTION INTACT. MUSCULOSKELETAL: NECK NONTENDER, FULL RANGE OF MOTION, BACK NONTENDER, FULL RA NGE OF MOTION. EXTREMITIES: NONTENDER, FULL RANGE OF MOTION. SKIN: COLOR PINK, DRY, NO TURGOR, NO RASH, NO LACERATIONS, NO ABRASIONS, NO CONTUSIONS. LYMPHATICS: DEFERRED. Results Laboratory and Microbiology Lab and Micro Result Laboratory Tests Test 12/23/24 10:42 Group A Streptococcus Rapid negative (NEGATIVE) Labs Reviewed?: Yes MDM MDM: DIFFERENTIAL DIAGNOSIS: PHARYNGITIS, URI, SINUSITIS PATIENT IS A 21-YEAR-OLD FEMALE COMING IN TO BE EVALUATED FOR URI SYMPTOMS. PATIENT HAS BEEN HAVING SORE THROAT NASAL CONGESTION. ON PHYSICAL EXAM THOROUGH IS PATENT POSTNASAL DRAINAGE AND WITH THE ERYTHEMA. STREP WAS PERFORMED NEGATIVE FOR ACUTE FINDINGS. ED Course Orders Procedure Category Date Status Time Rapid (Group A Strep) LAB 12/23/24 Complete 10:41 Vital Signs Date Time Temp Pulse Resp B/P (MAP) Pulse Ox O2 Delivery O2 Flow Rate FiO2 12/23/24 10:39 97.5 96 18 109/68 98 Room Air DX & DISP Disposition: Discharge Departure Impression: Primary Impression: Pharyngitis Condition: Stable Scripts Amoxicillin (Amoxicillin) 500 Mg Capsule 1 CAP PO TID for 10 Days, #30 CAP 0 Refills Prov: AKIL STONER MD 12/23/24 Additional Instructions: FOLLOW-UP WITH PRIMARY CARE PROVIDER IN 1 TO 2 DAYS. TAKE MEDICATIONS DIRECTED HERE IN THE EMERGENCY ROOM. OKAY TO CONTINUE HOME MEDICATIONS UNLESS OTHERWISE DISCUSSED DURING YOUR VISIT IN THE EMERGENCY ROOM TODAY. RETURN TO YOUR NEAREST EMERGENCY ROOM IF SYMPTOMS WORSEN OR IF THERE IS NO IMPROVEMENT. CALL 911 IF YOU NEED IMMEDIATE ASSISTANCE. TAKE TYLENOL [id number] NEEDED AND IF NO CONTRAINDICATIONS ARE PRESENT. INCREASE ORAL HYDRATION. A WO UND CULTURE OR URINE CULTURE WAS ORDERED HERE IN THE EMERGENCY ROOM DEPARTMENT PLEASE FOLLOW-UP WITH PRIMARY CARE PROVIDER AND ADVISE THEM TO GET REPEAT PORTS FROM OUR FACILITY. IF YOU HAD ANY VANDANA WRAP/SPLINTS THAT WERE APPLIED HERE, PLEASE DO NOT REMOVE THEM UNTIL YOU SEE YOUR PRIMARY CARE OR SPECIALTY. REFERRALS: Referrals: GRACE HULL (PCP) Time of Disposition: 11:01 AKIL STONER MD Dec 23, 2024 11:02
== END 2024-12-23 11:15 | disposition home or self-care (01) ==
LOC: EDH 10:34
DX: J02.9 Acute pharyngitis, unspecified (principal); E11.9 Type 2 diabetes mellitus without complications; F31.9 Bipolar disorder, unspecified; F41.9 Anxiety disorder, unspecified; Z88.1 Allergy status to other antibiotic agents; Z79.899 Other long term (current) drug therapy; Z98.890 Other specified postprocedural states
CPT/HCPCS: 87880; 99283

== ENCOUNTER → 2025-04-23 | Emergency (ER) | payer OTHER, MEDICARE ==
[~2025-04-23] VITALS: Ht 165.1 cm; Wt 66.7 kg
[~2025-04-23] MED LIST changes: +ACET-2079 PO; -CEPH500B PO; +DOXY-466 PO; -FAMO-136 PO; +GABA300C PO; +INSU100C14 SQ; -LEVO750T68 PO; +MELO-108 PO; -ONDA-243 PO; +PRAZ2CAP2 PO; +SEMA2PEN SQ; -SULF1TAB42 PO; +TRAZ-187 PO; +VENL75 PO
[2025-04-23 02:48] LABS: ABG OXYGEN SATURATION 67.3 % (94.0-98.0); BASE EXCESS,VENOUS BLOOD GAS -0.4 (-2.0-3.0); DEVICE COMMENT RR.RN JOSE; HCO3,VENOUS BLOOD GAS 25.4 (22.0-29.0); PCO2,VENOUS BLOOD GAS 47 (38-54); PH,VENOUS BLOOD GAS 7.355 (7.320-7.430); PO2,VENOUS BLOOD GAS 36.1 mmHg (23.0-48.0); TEMPERATURE, CELSIUS BG 37.0 CELSIUS (35.5-37.0); VENT MODE, BG RA (ROOM AIR)
--- NOTE | 2025-04-23 02:51 | ERN ---
ED Note History of Present Illness Stated Complaint: HYPERGLYCEMIA, COVID + ON WEDNESDAY Chief Complaint: Hyperglycemia Time Seen by MD: 02:29 Dictation: This is a 29-year-old female who presented to the emergency room via EMS with complaints of hyperglycemia. Patient has a known history of diabetes mellitus and has a insulin pump and apparently her freestyle Kayce was alarming as to sugars being high. So she called EMS and EMS reported a blood sugar of 489. Three days prior to the presentation she tested positive for COVID and she was started on Paxlovid. She did not receive any steroids. Tomorrow would be the last day of the Paxlovid. She reports some nonspecific symptoms of sore throat fatigue and polydipsia and urinary frequency. No fevers chills or rigors. No nausea vomitings diarrhea hematemesis or melena no abdominal pain Temperature 98.5 pulse 79 respirations 16 blood pressure 127/82 with a pulse oximetry of 98% on room air Her chronic medical problems include anxiety depression bipolar disorder diabetes mellitus, autism spectrum disorder, PTSD and a history of a control implant Allergies: Coded Allergies: azithromycin (Unverified Allergy, Unknown, 04/11/24) Home Meds Active Scripts Doxycycline Monohydrate (Doxycycline Monohydrate) 100 Mg Capsule, 1 CAP PO BID for 7 Days, #14 CAP 0 Refills Prov:SAUL LONG MD 02/09/25 Reported Medications Insulin Lispro (Humalog) 100 Unit/Ml Cartridge, 0 SQ ACHS, CARTRIDGE 02/08/25 Prazosin HCl (Prazosin HCl) 2 Mg Capsule, 1 CAP PO HS for 30 Days, #30 CAP 0 Refills 02/08/25 Semaglutide (Ozempic) 2 Mg/0.75 Ml (8 Mg/3 Ml) Pen.injctr, 2 MG SQ QWEEK for 30 Days, #3 ML 0 Refills 02/08/25 Gabapentin (Neurontin) 300 Mg Capsule, 300 MG PO TID, CAP 02/08/25 Trazodone HCl (Trazodone HCl) 100 Mg Tablet, 100 MG PO HS, TAB 02/08/25 Venlafaxine HCl (Effexor) 75 Mg Tab, 100 MG PO DAILY, TAB 02/08/25 Past Medical History Past Medical History: Anxiety, Bipolar, Depression, Diabetes-Type II Additional Past Medical Hx: AUSTISM SPECTRUM, PTSD Surgical History: Tonsillectomy, Other Surgical History Other: ORAL SURGERY AND CONTROL IMPLANT Family History: Negative Social History: Drugs (Marijuana vaping), Negative RN Note Reviewed/Agreed w/PFSH: Yes Review of System Dictation Constitutional: Negative for fever,chills, and weight loss Eyes: Negative for injury, pain,redness, and discharge ENT: Negative for injury,pain or swelling Cardiovascular: Negative for chest pain, palpitations, and edema Respiratory: Negative for shortness of breath, cough, and wheezing, Abdomen/GI: Negative for abdominal pain, nausea, vomiting, diarrhea, and constipation Back: Negative for injury and pain : Negative for injury, bleeding and discharge MS/Extremity: Negative for injury and deformity Skin: Negative for rash, and discoloration Neuro: Negative for headache, weakness, numbness, tingling, and seizure Psych: Negative for suicide ideation, homicidal ideation, and hallucinations Initial Vital Sign VS Vital Signs Date Time Temp Pulse Resp B/P (MAP) Pulse Ox O2 Delivery O2 Flow Rate FiO2 04/23/25 02:33 98.4 79 16 127/82 98 Room Air 0 04/23/25 02:44 21 Physical Exam Dictation General: awake, alert, NAD Head/Face: Normocephalic, atraumatic Eyes: PERRL, EOMI, vision at baseline ENT: oral cavity clear, TMs clear, no signs of infection Neck: Trachea midline, supple, no nuchal rigidity Cardiovascular: RRR, normal S1/S2, No MRGs, no JVD Respiratory: CTAB, no respiratory distress, No rales or wheezes Abdomen: Soft, non-tender, non-distended, normal bowel sounds, no guarding or rebound. Skin: Warm, dry, normal turgor, no rash MS/Extremity: Pulses equal, no cyanosis, neurovascular intact, FROM Neuro: COAx4, GCS 15, strength 5/5, CN 2-12 intact, normal cerebellar exam, normal gait, Psych: Normal behavior, mood, and affect normal Extremities-trace edema without any palpable cords, Homans sign is negative Results (Laboratory/Radiology) Laboratory/Radiology Laboratory Tests Test 04/23/25 02:45 04/23/25 02:47 04/23/25 04:30 Whole Blood Glucose 415 MG/DL (70-110) *H 232 MG/DL (70-110) H Bedside Glucose Comment Notified Nurse White Blood Count 7.5 K/uL (4.8-10.8) Red Blood Count 3.47 MIL/uL (4.00-5.50) L Hemoglobin 10.7 g/dL (12.0-16.0) L Hematocrit 31.2 % (36-48) L Mean Corpuscular Volume 89.9 fL (79-99) Mean Corpuscular Hemoglobin 30.8 pg (27.0-33.0) Mean Corpuscular Hemoglobin Concent 34.3 g/dL (32.0-36.0) Red Cell Distribution Width 12.8 % (11.0-15.5) Platelet Count 206 K/uL (130-400) Mean Platelet Volume 9.8 fL (7.5-10.5) Immature Granulocyte % (Auto) 0.7 % (0-1) Neutrophils (%) (Auto) 59.2 % (40.0-77.0) Lymphocytes (%) (Auto) 30.1 % (21.0-51.0) Monocytes (%) (Auto) 8.0 % (3.0-13.0) Eosinophils (%) (Auto) 1.5 % (0.0-8.0) Basophils (%) (Auto) 0.5 % (0.0-5.0) Neutrophils # (Auto) 4.4 K/uL (1.8-7.7) Lymphocytes # (Auto) 2.3 K/uL (1.0-4.8) Monocytes # (Auto) 0.6 K/uL (0.1-1.0) Eosinophils # (Auto) 0.11 K/uL (0.00-0.70) Basophils # (Auto) 0.04 K/uL (0.00-0.20) Absolute Immature Granulocyte (auto 0.05 K/uL (0-1) Nucleated Red Blood Cells 0.0 % (0.0-0.19) Urine Color COLORLESS (YELLOW) Urine Appearance CLEAR (CLEAR) Urine pH 7.0 (5.0-8.0) Urine Specific [place] 1.030 (1.001-1.031) Urine Protein NEGATIVE mg/dL (NEGATIVE) Urine Glucose (UA) >=1000 mg/dL (NEGATIVE) H Urine Ketones NEGATIVE mg/dL (NEGATIVE) Urine Occult Blood NEGATIVE (NEGATIVE) Urine Nitrate NEGATIVE (NEGATIVE) Urine Bilirubin NEGATIVE mg/dL (NEGATIVE) Urine Urobilinogen 0.2 mg/dL (0.2-1.0) Urine Leukocyte Esterase 25 [place]/uL (NEGATIVE) H Urine RBC 2-5 /HPF (0-1) H Urine WBC 11-25 /HPF (0-1) H Urine Squamous Epithelial Cells RARE /HPF (0-2) Urine Bacteria FEW /HPF (None Seen) Blood Gas Specimen Type Venous Arterial Blood Oxygen Saturation 67.3 % (94.0-98.0) L Venous Blood pH 7.355 (7.320-7.430) Venous Blood pCO2 at Patient Temp 47 (38-54) Venous Blood pO2 at Patient Temp 36.1 mmHg (23.0-48.0) Venous Blood HCO3 25.4 (22.0-29.0) Venous Blood Base Excess -0.4 (-2.0-3.0) Venous Blood Total Hemoglobin 11.4 (12.0-16.0) L Sodium (Blood Gas) 134 MMOL/L (136-145) L Bedside Potassium (Blood Gas) 4.3 MMOL/L (3.4-4.5) Bedside Chloride (Blood Gas) 100 MMOL/L (98-107) Bedside Glucose (Blood Gas) 461 MG/DL (65-95) *H Bedside Ionized Calcium (Blood Gas) 1.17 MMOL/L (1.15-1.33) Bedside Lactic Acid (Blood Gas) 1.46 MMOL/L (0.36-0.75) H Blood Gas Temperature 37.0 CELSIUS (35.5-37.0) Blood Gas Vent Mode RA (ROOM AIR) FiO2 21.0 % Blood Gas Specimen Comment RR.RN ROBERT Sodium Level 135 mmol/L (136-145) L Potassium Level 4.3 mmol/L (3.5-5.1) Chloride Level 101 mmol/L (101-111) Carbon Dioxide Level 27 mmol/L (21-32) Blood Urea Nitrogen 9 mg/dL (7-18) Creatinine 0.7 mg/dL (0.5-1.0) Glomerular Filtration Rate Calc 121 mL/min (>90) Random Glucose 476 mg/dL (70-105) *H Whole Blood Ketones Quantitative < 0.1 mmol/L (0.0-0.6) Lactic Acid Level 1.8 mmol/L (0.8-2.5) Total Calcium 7.8 mg/dL (8.5-10.1) L Human Chorionic Gonadotropin, Quant 0 mIU/mL (0-5) Labs Reviewed?: Yes ED Course ED Course Orders Procedure Category Date Status Time Cbc With Differential LAB 04/23/25 Complete 02:30 Basic Metabolic Panel LAB 04/23/25 Complete 02:30 Hcg,Quantitative LAB 04/23/25 Complete 02:30 Ketone Blood LAB 04/23/25 Complete Quantitative 02:30 Urinalysis Profile LAB 04/23/25 Complete 02:30 0.9%Nacl 1000ml (Ns PHA 04/23/25 Complete 1000ml) 02:30 Lactic Acid LAB 04/23/25 Complete 02:30 Venous Blood Gas + RT 04/23/25 Transmitted 02:40 Venous Blood Gas Plus LAB 04/23/25 Complete 02:47 Culture Urine ERICK 04/23/25 In Process 03:34 Insulin Regular, PHA 04/23/25 Complete Human 3ml (Humulin R 04:00 Current Medications Medications (Trade) Dose Ordered Sig/Jeramy Route PRN Reason Start Time Stop Time Status Last Admin Dose Admin Insulin Human Regular (humuLIN R 100 UNIT/ML 3ML) 15 unit ONCE ONCE IV 04/23/25 04:00 04/23/25 04:01 DC 04/23/25 04:11 Sodium Chloride 1,000 ml @ 0 mls/hr ONCE ONCE IV 04/23/25 02:30 04/23/25 02:33 DC 04/23/25 02:55 Vital Signs Date Time Temp Pulse Resp B/P (MAP) Pulse Ox O2 Delivery O2 Flow Rate FiO2 04/23/25 02:44 98.8 83 16 113/65 100 Room Air* 0 21 04/23/25 02:33 98.4 79 16 127/82 98 Room Air 0 We will perform diagnostic labs, and administer medications according to the patient's complaint. Once the results are available, will review and personally interpreted the labs to rule out any acute life-threatening emergency the trach require immediate intervention and treatment. I will then re-evaluate the patient after treatment and diagnostic exams have return to determine whether the patient requires any further testing, can safely be discharged home or need further admission to hospital for additional treatment and evaluation. Labs reviewed CBC showed a hemoglobin of 10.7. BNP 7 is within normal limits bicarb is 27 sodium is 135. Lactic acid is 1.46. VBG showed a pH of 7.35 pCO2 of 47. Urine test is negative. Serum ketones are negative. 4:30 a.m. I updated the patient on the lab work and reassured her that she is not in DKA. It is very likely that the COVID infection might have precipitated her hyperglycemia. We will give a short-acting insulin to bring the sugars down. 4:45 a.m. patient receiving IV fluids and had regular insulin IV. Repeat Accu- Chek at bedside -232 Medical Decision Making MDM Differential diagnosis: Hyperglycemia likely secondary to infection precipitating hyperglycemia, dietary indiscretions, DKA, HHS Rationale: Tests considered and ordered secondary to shared decision making inc lude: Previous outside records reviewed: Old ER visits. Risk of complication and/or morbidity or mortality of patient management: None Medications-Per medication reconciliation Need for hospitalization: Patient does not meet criteria for hospitalization. Need for emergency major/minor surgery: No There are no social concerns with this patient. Prescription drug management Prescriptions will include symptomatic care Patient's prior external medical records from other ER visits were reviewed by me as indicated. Prior testing and results from previous visits were reviewed. Prior tests were taken into account with medical decision making and resource utilization, independent historian/historians were used to obtain complete medical history. I independently interpreted the test that were performed, results were reviewed by me and considered findings on radiology if ordered. Medical management and examination interpretation discussions were had by me with other qualified healthcare professionals as indicated for the patient's care. Problem List Problem List: (1) COVID-19 virus infection (2) Uncontrolled diabetes mellitus with hyperglycemia (3) Cannabis use disorder DX & DISP Disposition: Discharge Departure Impression: Primary Impression: Uncontrolled diabetes mellitus with hyperglycemia Additional Impressions: COVID-19 virus infection, Cannabis use disorder Condition: Stable Additional Instructions: Patient and the caregiver have been informed of all the diagnostic tests and the imaging conducted during the today's visit to the emergency room and has verbal ized understanding of the results I have personally reviewed and interpreted all diagnostic exams performed here in the ER today as well as the vital signs documented by the nursing staff. The patient is now being discharged to home and should follow up with the primary care physician or the specialist as directed by the ER staff. Follow-up with primary care provider in 1 to 2 days. Take medications as directed here in the emergency room. Okay to continue home medications unless otherwise discussed during your visit in the emergency room today. Return to your nearest emergency room if symptoms worsen or if there is no improvement. Call 911 if you need immediate assistance. Take Tylenol or Motrin [id number] as needed and if no contraindications are present. Increase oral hydration. A wound culture or urine culture was ordered here in the emergency room department please follow-up with primary care provider and advise them to get repeat ports from our facility. If you had any Nadir wrap/splints th at were applied here, please do not remove them until you see your primary care or specialty. Referrals: GRACE HULL (PCP) NAVARRO KELLER MD Apr 23, 2025 02:51
[2025-04-23] MEDS: 0.9%NACL 1000ML 1,000 ML IV ONE (02:55)
[2025-04-23 03:19] LABS: IMMATURE GRANULOCYTE ABSOLUTE 0.05 K/uL (0-1); NUCLEATED RED BLOOD CELLS 0.0 % (0.0-0.19); PLATELET COUNT (AUTO) 206 K/uL (130-400); RED BLOOD CELL COUNT(AUTO) 3.47 MIL/uL (4.00-5.50); RED CELL DISTRIBUTION WIDTH 12.8 % (11.0-15.5); WHITE BLOOD COUNT (AUTO) 7.5 K/uL (4.8-10.8)
[2025-04-23 03:30] LABS: CREATININE 0.7 mg/dL (0.5-1.0); GLOMERULAR FILTR. RATE CALC 121 mL/min (>90); HCG,QUANTITATIVE 0 mIU/mL (0-5); SODIUM SERUM 135 mmol/L (136-145); UREA NITROGEN, BLOOD 9 mg/dL (7-18)
[2025-04-23 03:32] LABS: ADD UA MICROSCOPIC YES; APPEARANCE,URINE CLEAR (CLEAR); GLUCOSE, URINE (UA) >=1000 mg/dL (NEGATIVE); LEUKOCYTE ESTERASE ,URINE 25 Leu/uL (NEGATIVE); NITRATE,URINE NEGATIVE (NEGATIVE); OCCULT BLOOD,URINE NEGATIVE (NEGATIVE)
[2025-04-23 03:33] LABS: SQUAMOUS EPITHELIAL CELL,UR RARE /HPF (0-2)
[2025-04-23 03:34] LABS: GLUCOSE,RANDOM 476 mg/dL (70-105)
[2025-04-23 05:23] VITALS: BP 98/71; PULSE 81; RESP 16; TEMP 98.8; O2SAT 99
== END ==
LOC: EDH 02:26
DX: U07.1 COVID-19 (principal); E11.65 Type 2 diabetes mellitus with hyperglycemia; R10.2 Pelvic and perineal pain; F12.90 Cannabis use, unspecified, uncomplicated; F41.9 Anxiety disorder, unspecified; F31.9 Bipolar disorder, unspecified; Z79.85 Long-term (current) use of injectable non-insulin antidiabetic drugs; Z79.899 Other long term (current) drug therapy; Z88.1 Allergy status to other antibiotic agents; Z90.89 Acquired absence of other organs
CPT/HCPCS: 99284; 96374; 82947; 80048; 82803; 84702; 85025; 87086; 83605 ×2; 82010; 81001; 36415; 36600; 82435; 84132; 84295; 82948 ×3; J1815; J7030; 99283

== ENCOUNTER 2025-04-25 15:57 | Emergency (ER) | payer OTHER, MEDICARE ==
[~2025-04-25] VITALS: Ht 165.1 cm; Wt 68.0 kg
[~2025-04-25 15:57] MED LIST changes: -ACET-2079 PO; -MELO-108 PO
[2025-04-25] MEDS: HYDROcodone/APAP 5/325 1 TAB TABLET PO ONE (16:34)
--- NOTE | 2025-04-25 17:32 | HMCIMG ---
EXAM: CR right Hand, 3 View. CLINICAL HISTORY: fall, injry COMPARISON: None provided. FINDINGS: BONES: No acute osseous pathology evident. JOINTS: No evidence of dislocation. The joint spaces are normal. SOFT TISSUES: The soft tissues appear within normal limits. No radiopaque foreign body is seen. IMPRESSION: No acute pathology evident. No acute fracture or dislocation. /[place]
--- NOTE | 2025-04-25 17:32 | HMCIMG ---
EXAM: CR right Wrist, 3 View. CLINICAL HISTORY: fall, injry COMPARISON: None provided. FINDINGS: BONES: No acute fracture or aggressive appearing osseous lesion. JOINTS: No dislocation. The carpal bones demonstrate normal alignment. SOFT TISSUES: The soft tissues are unremarkable. IMPRESSION: No acute osseous abnormality. No acute fracture or dislocation. /[place]
--- NOTE | 2025-04-25 17:53 | HMCIMG ---
EXAM: CT Maxillofacial Without IV contrast. CLINICAL HISTORY: fall TECHNIQUE: Axial computed tomography images of the face without intravenous contrast. Sagittal and coronal reformatted images were generated. CONTRAST: None. COMPARISON: None provided. FINDINGS: FACIAL BONES/ORBITS: No acute fracture or aggressive appearing osseous lesion. The mandible is intact. The orbits are normal. No retrobulbar hematoma or mass. The paranasal sinuses appear clear. Mild leftward deviation of the nasal septum. SOFT TISSUES: Opacification of the majority of the posterior right ethmoid air cells and mild mucosal thickening anterior bilateral ethmoid air cells. Small posterior right sphenoid sinus mucous retention cyst versus polyp. No air-fluid level within the paranasal sinuses. The mastoid air cells and middle ears are clear. The soft tissues are unremarkable. No radiopaque foreign body or focal fluid collection seen. IMPRESSION: 1. No acute facial osseous injury. 2. Mild leftward nasal septal deviation. 3. Opacification of posterior right ethmoid air cells and mild anterior bilateral ethmoid mucosal thickening. 4. Small posterior right sphenoid sinus mucous retention cyst versus polyp. /[place]
[2025-04-25 18:15] VITALS: BP 125/83; PULSE 88; RESP 19; TEMP 99.2; O2SAT 96
[2025-04-25] MEDS ORDERED: MELO-108 PO (18:30)
[2025-04-25] MEDS ORDERED: ACET-2079 PO (18:30)
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
--- NOTE | 2025-04-25 19:01 | HMCIMG ---
EXAM: CT Head Without IV contrast. CLINICAL HISTORY: Fall. TECHNIQUE: Axial computed tomography images of the head/brain without intravenous contrast. COMPARISON: None provided. FINDINGS: BRAIN: No evidence of acute hemorrhage. No mass lesion. No CT evidence for acute territorial infarct. No midline shift or extra-axial collections. VENTRICLES: No hydrocephalus. ORBITS: The orbits are unremarkable. SINUSES AND MASTOIDS: The paranasal sinuses and mastoid air cells are clear. BONES: No fracture. SOFT TISSUES: Unremarkable. IMPRESSION: No acute intracranial abnormality. /[place]
== END 2025-04-25 18:53 | disposition home or self-care (01) ==
LOC: EDH 15:57
DX: S01.81XA Laceration without foreign body of other part of head, initial encounter (principal); S63.501A Unspecified sprain of right wrist, initial encounter; E11.9 Type 2 diabetes mellitus without complications; F32.A Depression, unspecified; F41.9 Anxiety disorder, unspecified; F43.10 Post-traumatic stress disorder, unspecified; Z79.4 Long term (current) use of insulin; Z79.85 Long-term (current) use of injectable non-insulin antidiabetic drugs; Z79.899 Other long term (current) drug therapy; Z88.1 Allergy status to other antibiotic agents; Z90.89 Acquired absence of other organs; V87.8XXA Person injured in other specified noncollision transport accidents involving motor vehicle (traffic), initial encounter; Y93.55 Activity, bike riding; Y92.89 Other specified places as the place of occurrence of the external cause; Y99.8 Other external cause status
CPT/HCPCS: 99285; 70450; 96374; 90714; 73130; 73110; 70486; 90471; 12011; J1885

== ENCOUNTER 2025-06-02 02:39 | Emergency (ER) | payer OTHER, MEDICARE ==
[~2025-06-02] VITALS: Ht 165.1 cm; Wt 65.3 kg
[~2025-06-02 02:39] MED LIST changes: +ACET-2079 PO; +MELO-108 PO
--- NOTE | 2025-06-02 03:00 | ERN ---
ED Note History of Present Illness Stated Complaint: HYPERGLYCEMIA, NAUSEA Chief Complaint: Hyperglycemia Time Seen by MD: 02:54 Dictation: This is a 29-year-old female who presented to the emergency room complaining of nausea as well as high sugars. She started feeling lightheaded apparently tonight and she came in for evaluation. She has a freestyle Kayce for management of her hyperglycemia and she stated that all night her sugars were up and down and at 1 point the fingerstick glucose at home was 438. Upon arrival in triage the freestyle Kacye recorded 313. Patient denied missing medications. No fever chills or rigors. Temperature 99.2 pulse 103 respirations 14 blood pressure 105/58 with a pulse oximetry of 98% on room air Her chronic medical problems include type 1 diabetes mellitus, autism spectrum disorder, PTSD, anxiety and depression Allergies: Coded Allergies: azithromycin (Unverified Allergy, Unknown, 04/11/24) Home Meds Active Scripts Meloxicam (Meloxicam) 15 Mg Tablet, 15 MG PO DAILY PRN for PAIN for 10 Days, #10 TAB Prov:FRANCISCO PATTERSON DO 04/25/25 Acetaminophen with Codeine (Acetaminophen-Cod #3 Tablet) 300 Mg-30 Mg Tablet, 1 TAB PO Q6HPRN PRN for pain for 3 Days, #10 TAB 0 Refills Prov:FRANCISCO PATTERSON DO 04/25/25 Doxycycline Monohydrate (Doxycycline Monohydrate) 100 Mg Capsule, 1 CAP PO BID for 7 Days, #14 CAP 0 Refills Prov:SAUL LONG MD 02/09/25 Reported Medications Insulin Lispro (Humalog) 100 Unit/Ml Cartridge, 0 SQ ACHS, CARTRIDGE 02/08/25 Prazosin HCl (Prazosin HCl) 2 Mg Capsule, 1 CAP PO HS for 30 Days, #30 CAP 0 Refills 02/08/25 Semaglutide (Ozempic) 2 Mg/0.75 Ml (8 Mg/3 Ml) Pen.injctr, 2 MG SQ QWEEK for 30 Days, #3 ML 0 Refills 02/08/25 Gabapentin (Neurontin) 300 Mg Capsule, 300 MG PO TID, CAP 02/08/25 Trazodone HCl (Trazodone HCl) 100 Mg Tablet, 100 MG PO HS, TAB 02/08/25 Venlafaxine HCl (Effexor) 75 Mg Tab, 100 MG PO DAILY, TAB 02/08/25 Past Medical History Past Medical History: Anxiety, Bipolar, Depression, Diabetes-Type I Additional Past Medical Hx: AUSTISM SPECTRUM, PTSD Surgical History: Tonsillectomy, Other Surgical History Other: ORAL SURGERY AND CONTROL IMPLANT Family History: Negative Social History: Drugs (History of marijuana abuse) RN Note Reviewed/Agreed w/PFSH: Yes Review of System Dictation Constitutional: Negative for fever,chills, and weight loss positive for lightheadedness Eyes: Negative for injury, pain,redness, and discharge ENT: Negative for injury,pain or swelling Cardiovascular: Negative for chest pain, palpitations, and edema Respiratory: Negative for shortness of breath, cough, and wheezing, Abdomen/GI: Negative for abdominal pain, , vomiting, diarrhea, and constipation positive for nausea Back: Negative for injury and pain : Negative for injury, bleeding and discharge MS/Extremity: Negative for injury and deformity Skin: Negative for rash, and discoloration Neuro: Negative for headache, weakness, numbness, tingling, and seizure Psych: Negative for suicide ideation, homicidal ideation, and hallucinations Initial Vital Sign VS Vital Signs Date Time Temp Pulse Resp B/P (MAP) Pulse Ox O2 Delivery O2 Flow Rate FiO2 06/02/25 02:40 99.1 103 14 105/58 97 Room Air 0 06/02/25 03:14 21 Physical Exam Dictation General: awake, alert, NAD Head/Face: Normocephalic, atraumatic Eyes: PERRL, EOMI, vision at baseline ENT: oral cavity clear, TMs clear, no signs of infection Neck: Trachea midline, supple, no nuchal rigidity Cardiovascular: RRR, normal S1/S2, No MRGs, no JVD Respiratory: CTAB, no respiratory distress, No rales or wheezes Abdomen: Soft, non-tender, non-distended, normal bowel sounds, no guarding or rebound. Skin: Warm, dry, normal turgor, no rash MS/Extremity: Pulses equal, no cyanosis, neurovascular intact, FROM Neuro: COAx4, GCS 15, strength 5/5, CN 2-12 intact, normal cerebellar exam, normal gait, Psych: Normal behavior, mood, and affect normal Extremities-trace edema without any palpable cords, Homans sign is negative Results (Laboratory/Radiology) Laboratory/Radiology Laboratory Tests Test 06/02/25 03:04 06/02/25 03:09 Urine Color YELLOW (YELLOW) Urine Appearance CLEAR (CLEAR) Urine pH 5.5 (5.0-8.0) Urine Specific [place] 1.036 (1.001-1.031) Urine Protein 10 mg/dL (NEGATIVE) H Urine Glucose (UA) >=1000 mg/dL (NEGATIVE) H Urine Ketones 60 mg/dL (NEGATIVE) H Urine Occult Blood MODERATE (NEGATIVE) H Urine Nitrate NEGATIVE (NEGATIVE) Urine Bilirubin NEGATIVE mg/dL (NEGATIVE) Urine Urobilinogen 0.2 mg/dL (0.2-1.0) Urine Leukocyte Esterase 75 Meredith/uL (NEGATIVE) H Urine RBC 2-5 /HPF (0-1) H Urine WBC 6-10 /HPF (0-1) H Urine Squamous Epithelial Cells FEW /HPF (0-2) Urine Bacteria None /HPF (None Seen) Urine Opiates Screen NEGATIVE (NEGATIVE) Urine Barbiturates Screen NEGATIVE (NEGATIVE) Urine Phencyclidine Screen NEGATIVE (NEGATIVE) Urine Amphetamines Screen NEGATIVE (NEGATIVE) Urine Benzodiazepines Screen NEGATIVE (NEGATIVE) Urine Cocaine Screen NEGATIVE (NEGATIVE) Urine Marijuana (THC) Screen POSITIVE (NEGATIVE) H White Blood Count 8.9 K/uL (4.8-10.8) Red Blood Count 3.26 MIL/uL (4.00-5.50) L Hemoglobin 10.0 g/dL (12.0-16.0) L Hematocrit 28.4 % (36-48) L Mean Corpuscular Volume 87.1 fL (79-99) Mean Corpuscular Hemoglobin 30.7 pg (27.0-33.0) Mean Corpuscular Hemoglobin Concent 35.2 g/dL (32.0-36.0) Red Cell Distribution Width 12.4 % (11.0-15.5) Platelet Count 178 K/uL (130-400) Mean Platelet Volume 9.6 fL (7.5-10.5) Immature Granulocyte % (Auto) 0.5 % (0-1) Neutrophils (%) (Auto) 65.3 % (40.0-77.0) Lymphocytes (%) (Auto) 27.6 % (21.0-51.0) Monocytes (%) (Auto) 5.6 % (3.0-13.0) Eosinophils (%) (Auto) 0.5 % (0.0-8.0) Basophils (%) (Auto) 0.5 % (0.0-5.0) Neutrophils # (Auto) 5.8 K/uL (1.8-7.7) Lymphocytes # (Auto) 2.4 K/uL (1.0-4.8) Monocytes # (Auto) 0.5 K/uL (0.1-1.0) Eosinophils # (Auto) 0.04 K/uL (0.00-0.70) Basophils # (Auto) 0.04 K/uL (0.00-0.20) Absolute Immature Granulocyte (auto 0.04 K/uL (0-1) Nucleated Red Blood Cells 0.0 % (0.0-0.19) Sodium Level 136 mmol/L (136-145) Potassium Level 3.5 mmol/L (3.5-5.1) Chloride Level 102 mmol/L (101-111) Carbon Dioxide Level 25 mmol/L (21-32) Blood Urea Nitrogen 15 mg/dL (7-18) Creatinine 0.7 mg/dL (0.5-1.0) Glomerular Filtration Rate Calc 121 mL/min (>90) Random Glucose 271 mg/dL (70-105) H Whole Blood Ketones Quantitative 0.2 mmol/L (0.0-0.6) Total Calcium 8.0 mg/dL (8.5-10.1) L Serum Test, Qualitative NEGATIVE (NEGATIVE) Labs Reviewed?: Yes ED Course ED Course Orders Procedure Category Date Status Time Cbc With Differential LAB 06/02/25 Complete 02:54 Basic Metabolic Panel LAB 06/02/25 Complete 02:54 Testing, LAB 06/02/25 Complete Serum Hcg 02:54 Ketone Blood LAB 06/02/25 Complete Quantitative 02:54 Urinalysis Profile LAB 06/02/25 Complete 02:54 0.9%Nacl 1000ml (Ns PHA 06/02/25 Complete 1000ml) 03:00 Drug Screen Urine LAB 06/02/25 Complete 02:54 Ondansetron 4mg Inj PHA 06/02/25 Complete (Zofran 4mg Inj) 03:00 Culture Urine ERICK 06/02/25 Logged 03:37 Insulin Regular, PHA 06/02/25 Complete Human 3ml (Humulin R 04:00 Ceftriaxone 1g Vial PHA 06/02/25 Complete (Rocephine 1g Inj) 04:30 Current Medications Medications (Trade) Dose Ordered Sig/Jeramy Route PRN Reason Start Time Stop Time Status Last Admin Dose Admin Ceftriaxone Sodium (ROCEphine 1G INJ) 1 gm ONCE ONCE IVPB 06/02/25 04:30 06/02/25 04:31 DC 06/02/25 04:14 Insulin Human Regular (humuLIN R 100 UNIT/ML 3ML) 5 unit ONCE ONCE IV 06/02/25 04:00 06/02/25 04:01 DC 06/02/25 04:07 Ondansetron HCl (zoFRAN 4MG INJ) 4 mg ONCE ONCE IVP 06/02/25 03:00 06/02/25 03:01 DC 06/02/25 03:17 Sodium Chloride 1,000 ml @ 0 mls/hr ONCE ONCE IV 06/02/25 03:00 06/02/25 03:01 DC 06/02/25 03:17 Vital Signs Date Time Temp Pulse Resp B/P (MAP) Pulse Ox O2 Delivery O2 Flow Rate FiO2 06/02/25 03:57 80 18 110/62 98 Room Air* 0 21 06/02/25 03:14 98.8 92 18 118/69 99 Room Air* 0 21 06/02/25 02:40 99.1 103 14 105/58 97 Room Air 0 We will perform diagnostic labs, advanced imaging and administer medications according to the patient's complaint. Once the results are available, will review and personally interpreted the labs to rule out any acute life- threatening emergency the trach require immediate intervention and treatment. I will then re-evaluate the patient after treatment and diagnostic exams have return to determine whether the patient requires any further testing, can safely be discharged home or need further admission to hospital for additional treatment and evaluation. 3:30 a.m. labs reviewed CBC shows white count of 8.9 hemoglobin 10 platelets 178. Gentle hydration initiated. 3:45 a.m.. BNP 7 shows a potassium of 3.5 sugar 271. Serum ketones 0.2 UDS is positive for marijuana and urinalysis is significant for a mild increase in leuko esterase and WBCs. Urine test is negative. We will request 5 units of regular insulin and rechecked the blood sugars. Also request Rocephin for UTI Updated the patient on all the labs and that patient only has hyperglycemia but not in DKA and answered all her questions. 5:00 a.m. after IV hydration and small dose of insulin patient sugars have improved to 113 Medical Decision Making MDM Differential diagnosis: Uncontrolled hyperglycemia, DKA, gastritis, cholecystitis, dehydration Rationale: Tests considered and ordered secondary to shared decision making include: Previous outside records reviewed: Old ER visits. Risk of complication and/or morbidity or mortality of patient management: None Medications-Per medication reconciliation Need for hospitalization: Patient does not meet criteria for hospitalization. Need for emergency major/minor surgery: No There are no social concerns with this patient. Prescription drug management Prescriptions will include symptomatic care Patient's prior external medical records from other ER visits were reviewed by me as indicated. Prior testing and results from previous visits were reviewed. Prior tests were taken into account with medical decision making and resource utilization, independent historian/historians were used to obtain complete medical history. I independently interpreted the test that were performed, results were reviewed by me and considered findings on radiology if ordered. Medical management and examination interpretation discussions were had by me with other qualified healthcare professionals as indicated for the patient's care. Problem List Problem List: (1) Uncontrolled diabetes mellitus with hyperglycemia (2) Dehydration (3) Cannabis use disorder (4) UTI (urinary tract infection) DX & DISP Disposition: Discharge Departure Impression: Primary Impression: Uncontrolled diabetes mellitus with hyperglycemia Additional Impressions: Dehydration, UTI (urinary tract infection), Cannabis use disorder Condition: Stable Scripts Nitrofurantoin Monohyd/M-Cryst (Nitrofurantoin Kern-Mcr 100 mg) 100 Mg Capsule 1 CAP PO BID for 7 Days, #14 CAP 0 Refills Prov: NAVARRO KELLER MD 06/02/25 Additional Instructions: Patient and the caregiver have been informed of all the diagnostic tests and the imaging conducted during the today's visit to the emergency room and has verbalized understanding of the results I have personally reviewed and interpreted all diagnostic exams performed here in the ER today as well as the vital signs documented by the nursing staff. The patient is now being discharged to home and should follow up with the primary care physician or the specialist as directed by the ER staff. Follow-up with primary care provider in 1 to 2 days. Take medications as directed here in the emergency room. Okay to continue home medications unless otherwise discussed during your visit in the emergency room today. Return to your nearest emergency room if symptoms worsen or if there is no improvement. Call 911 if you need immediate assistance. Take Tylenol or Motrin [id number] as needed and if no contraindications are present. Increase oral hydration. A wound culture or urine culture was ordered here in the emergency room department please follow-up with primary care provider and advise them to get repeat ports from our facility. If you had any Nadir wrap/splints that were applied here, please do not remove them until you see your primary care or specialty. Referrals: GRACE HULL (PCP) NAVARRO KELLER MD Jun 02, 2025 03:00
[2025-06-02] MEDS: 0.9%NACL 1000ML 1,000 ML IV ONE (03:17)
[2025-06-02 03:28] LABS: CREATININE 0.7 mg/dL (0.5-1.0); GLOMERULAR FILTR. RATE CALC 121.0 mL/min (>90); IMMATURE GRANULOCYTE ABSOLUTE 0.04 K/uL (0-1); NUCLEATED RED BLOOD CELLS 0.0 % (0.0-0.19); PLATELET COUNT (AUTO) 178 K/uL (130-400); RED BLOOD CELL COUNT(AUTO) 3.26 MIL/uL (4.00-5.50); RED CELL DISTRIBUTION WIDTH 12.4 % (11.0-15.5); SODIUM SERUM 136.0 mmol/L (136-145); WHITE BLOOD COUNT (AUTO) 8.9 K/uL (4.8-10.8)
[2025-06-02 03:31] LABS: APPEARANCE,URINE CLEAR (CLEAR); GLUCOSE, URINE (UA) >=1000 mg/dL (NEGATIVE); LEUKOCYTE ESTERASE ,URINE 75 Leu/uL (NEGATIVE); NITRATE,URINE NEGATIVE (NEGATIVE); OCCULT BLOOD,URINE MODERATE (NEGATIVE)
[2025-06-02 03:33] LABS: GLUCOSE,RANDOM 271.0 mg/dL (70-105); UREA NITROGEN, BLOOD 15.0 mg/dL (7-18)
[2025-06-02 03:35] LABS: AMPHET/METH SCREEN,URINE NEGATIVE (NEGATIVE); BARBITURATE SCREEN, URINE NEGATIVE (NEGATIVE); CANNABINOID SCREEN,URINE POSITIVE (NEGATIVE); COCAINE SCREEN,URINE NEGATIVE (NEGATIVE)
[2025-06-02 03:36] LABS: ADD UA MICROSCOPIC YES
[2025-06-02 03:38] LABS: SQUAMOUS EPITHELIAL CELL,UR FEW /HPF (0-2)
[2025-06-02 04:59] VITALS: BP 116/74; PULSE 80; RESP 18; TEMP 98.3; O2SAT 99
[2025-06-02] MEDS ORDERED: NITR100C9 PO (05:01)
[2025-06-02] MEDS ORDERED: AMOX1TAB16 PO (08:05)
[2025-06-02] MEDS ORDERED: KETO10TA2 PO (08:05)
== END 2025-06-02 05:16 | disposition home or self-care (01) ==
LOC: EDH 02:39
DX: E10.65 Type 1 diabetes mellitus with hyperglycemia (principal); E86.0 Dehydration; N39.0 Urinary tract infection, site not specified; F12.10 Cannabis abuse, uncomplicated; F31.9 Bipolar disorder, unspecified; F41.9 Anxiety disorder, unspecified; F43.10 Post-traumatic stress disorder, unspecified; Z68.24 Body mass index [BMI] 24.0-24.9, adult; Z79.85 Long-term (current) use of injectable non-insulin antidiabetic drugs; Z79.899 Other long term (current) drug therapy; Z88.1 Allergy status to other antibiotic agents; Z90.89 Acquired absence of other organs
CPT/HCPCS: 99284; 99283; 96375; 80048; 80305; 84703; 85025; 87086; 82948; 82010; 81001; 36415; 96374 ×2; J1815; J1885; J0696; J2405

== ENCOUNTER 2025-06-02 07:45 | Emergency (ER) | payer OTHER, MEDICARE ==
[~2025-06-02] VITALS: Ht 167.6 cm; Wt 65.3 kg
[~2025-06-02 07:45] MED LIST changes: +NITR100C9 PO
[2025-06-02 07:55] VITALS: BP 133/90; PULSE 87; RESP 16; TEMP 97.4; O2SAT 99
--- NOTE | 2025-06-02 08:00 | NUR ---
animal control at bedside
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
[2025-06-02] MEDS ORDERED: AMOX1TAB16 PO (08:05)
[2025-06-02] MEDS ORDERED: KETO10TA2 PO (08:05)
--- NOTE | 2025-06-02 08:05 | ERN ---
General Chief Complaint: Animal Bite Stated Complaint: DOG BITE Time Seen by MD: 07:49 History of Present Illness Initial Comments 29 y/o female came in for dog bite which happened prior to arrival. Pt otherwise has no concerns. Allergies: Coded Allergies: azithromycin (Unverified Allergy, Unknown, 04/11/24) Home Meds Active Scripts Nitrofurantoin Monohyd/M-Cryst (Nitrofurantoin [place]-Mcr 100 mg) 100 Mg Capsule, 1 CAP PO BID for 7 Days, #14 CAP 0 Refills Prov:NAVARRO KELLER MD 06/02/25 Meloxicam (Meloxicam) 15 Mg Tablet, 15 MG PO DAILY PRN for PAIN for 10 Days, #10 TAB Prov:FRANCISCO PATTERSON DO 04/25/25 Acetaminophen with Codeine (Acetaminophen-Cod #3 Tablet) 300 Mg-30 Mg Tablet, 1 TAB PO Q6HPRN PRN for pain for 3 Days, #10 TAB 0 Refills Prov:FRANCISCO PATTERSON DO 04/25/25 Doxycycline Monohydrate (Doxycycline Monohydrate) 100 Mg Capsule, 1 CAP PO BID for 7 Days, #14 CAP 0 Refills Prov:SAUL LONG MD 02/09/25 Reported Medications Insulin Lispro (Humalog) 100 Unit/Ml Cartridge, 0 SQ ACHS, CARTRIDGE 02/08/25 Prazosin HCl (Prazosin HCl) 2 Mg Capsule, 1 CAP PO HS for 30 Days, #30 CAP 0 Refills 02/08/25 Semaglutide (Ozempic) 2 Mg/0.75 Ml (8 Mg/3 Ml) Pen.injctr, 2 MG SQ QWEEK for 30 Days, #3 ML 0 Refills 02/08/25 Gabapentin (Neurontin) 300 Mg Capsule, 300 MG PO TID, CAP 02/08/25 Trazodone HCl (Trazodone HCl) 100 Mg Tablet, 100 MG PO HS, TAB 02/08/25 Venlafaxine HCl (Effexor) 75 Mg Tab, 100 MG PO DAILY, TAB 02/08/25 Past Medical History Past Medical History: Anxiety, Depression, Diabetes-Type I Medical History Other: austism Past Surgical History: None Surgical History Other: ORAL SURGERY AND CONTROL IMPLANT Family History Family History: Negative Social History Social History: Drugs ROS Dictation Leg pain Physical Exam Physical Exam Dictation 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 Pt states that the incidence was reported and the dog is a known dog to the neighbor. Pt will be sent home on Augmentin. Pt is advised to follow up with primary care physician. ED Course Orders Procedure Category Date Status Time Ketorolac PHA 06/02/25 Transmitted Tromethamine 30mg/Ml 08:00 Ceftriaxone 1g Vial PHA 06/02/25 Transmitted (Rocephine 1g Inj) 08:00 Vital Signs Date Time Temp Pulse Resp B/P (MAP) Pulse Ox O2 Delivery O2 Flow Rate FiO2 06/02/25 07:55 97.3 87 16 133/90 99 Room Air* 0 21 06/02/25 07:47 97.3 87 16 133/99 99 Room Air 0 DX & DISP Disposition: Discharge Departure Impression: Primary Impression: Dog bite Condition: Stable Scripts Ketorolac Tromethamine (Ketorolac Tromethamine) 10 Mg Tablet 1 TAB PO BID PRN for pain for 5 Days, #20 TAB 0 Refills Prov: GABINO HOLT MD 06/02/25 Amoxicillin/Potassium Clav (Amox Tr-K Clv 875-125 mg Tab) 875 Mg-125 Mg Tablet 1 EACH PO BID for 7 Days, #14 TAB 0 Refills Prov: GABINO HOLT MD 06/02/25 Referrals: GRACE HULL (PCP) GABINO HOLT MD Jun 02, 2025 08:05
== END 2025-06-02 08:13 | disposition home or self-care (01) ==
LOC: EDH 07:45
DX: S81.031A Puncture wound without foreign body, right knee, initial encounter (principal); E10.9 Type 1 diabetes mellitus without complications; F32.A Depression, unspecified; F41.9 Anxiety disorder, unspecified; Z79.85 Long-term (current) use of injectable non-insulin antidiabetic drugs; Z79.899 Other long term (current) drug therapy; Z88.1 Allergy status to other antibiotic agents; W54.0XXA Bitten by dog, initial encounter; Y93.89 Activity, other specified; Y92.89 Other specified places as the place of occurrence of the external cause; Y99.8 Other external cause status
CPT/HCPCS: 99283; 96374; J1885

== ENCOUNTER 2025-07-20 00:48 | Emergency (ER) | payer OTHER, MEDICARE ==
[~2025-07-20] VITALS: Ht 165.1 cm; Wt 64.4 kg
[~2025-07-20 00:48] MED LIST changes: +AMOX1TAB16 PO; +KETO10TA2 PO
--- NOTE | 2025-07-20 01:01 | NUR ---
PT CARE ASSUMED AT THIS TIME
--- NOTE | 2025-07-20 01:26 | ERN ---
General Chief Complaint: Back Pain or Injury Stated Complaint: PAIN TO L FLANK AREA AFTER STRIKING COUNTER Time Seen by MD: 00:57 Source: patient History of Present Illness Initial Comments 30-year-old female who fell against a sharp corner of a metal cart at work after slipping on a wet floor. She did not fall to the ground she did not have loss of consciousness she is not on blood thinners. Her pain is on her left flank and back. No abdominal pain. Timing/Duration: 1-3 hours Severity: mild, moderate Allergies: Coded Allergies: azithromycin (Unverified Allergy, Unknown, 04/11/24) Home Meds Active Scripts Ketorolac Tromethamine (Ketorolac Tromethamine) 10 Mg Tablet, 1 TAB PO BID PRN for pain for 5 Days, #20 TAB 0 Refills Prov:GABINO HOLT MD 06/02/25 Amoxicillin/Potassium Clav (Amox Tr-K Clv 875-125 mg Tab) 875 Mg-125 Mg Tablet, 1 EACH PO BID for 7 Days, #14 TAB 0 Refills Prov:GABINO HOLT MD 06/02/25 Nitrofurantoin Monohyd/M-Cryst (Nitrofurantoin [place]-Mcr 100 mg) 100 Mg Capsule, 1 CAP PO BID for 7 Days, #14 CAP 0 Refills Prov:NAVARRO KELLER MD 06/02/25 Meloxicam (Meloxicam) 15 Mg Tablet, 15 MG PO DAILY PRN for PAIN for 10 Days, #10 TAB Prov:FRANCISCO PATTERSON DO 04/25/25 Acetaminophen with Codeine (Acetaminophen-Cod #3 Tablet) 300 Mg-30 Mg Tablet, 1 TAB PO Q6HPRN PRN for pain for 3 Days, #10 TAB 0 Refills Prov:FRANCISCO PATTERSON DO 04/25/25 Doxycycline Monohydrate (Doxycycline Monohydrate) 100 Mg Capsule, 1 CAP PO BID for 7 Days, #14 CAP 0 Refills Prov:SAUL LONG MD 02/09/25 Reported Medications Insulin Lispro (Humalog) 100 Unit/Ml Cartridge, 0 SQ ACHS, CARTRIDGE 02/08/25 Prazosin HCl (Prazosin HCl) 2 Mg Capsule, 1 CAP PO HS for 30 Days, #30 CAP 0 Refills 02/08/25 Semaglutide (Ozempic) 2 Mg/0.75 Ml (8 Mg/3 Ml) Pen.injctr, 2 MG SQ QWEEK for 30 Days, #3 ML 0 Refills 02/08/25 Gabapentin (Neurontin) 300 Mg Capsule, 300 MG PO TID, CAP 02/08/25 Trazodone HCl (Trazodone HCl) 100 Mg Tablet, 100 MG PO HS, TAB 02/08/25 Venlafaxine HCl (Effexor) 75 Mg Tab, 100 MG PO DAILY, TAB 02/08/25 Past Medical History Past Medical History: Anxiety, Depression, Diabetes-Type I Medical History Other: austism Past Surgical History: None Surgical History Other: ORAL SURGERY AND CONTROL IMPLANT Family History Family History: Negative Social History Social History: Drugs Constitutional: (-) chills, (-) diaphoresis, (-) fever, (-) malaise, (-) weakness, (-) other documentation EENTM: (-) eye pain, (-) blurred vision, (-) tearing, (-) double vision, (-) ear pain, (-) ear discharge, (-) nose pain, (-) nose congestion, (-) throat pain, (-) Throat swelling, (-) mouth pain, (-) tooth pain, (-) mouth swelling, (-) other documentation Respiratory: (-) cough, (-) orthopnea, (-) short of breath, (-) stridor, (-) wheezing, (-) other documentation Cardiovascular: (-) chest pain, (-) edema, (-) palpitations, (-) syncope, (-) dyspnea on exertion, (-) other documentation Gastrointestinal/Abdominal: (-) nausea, (-) vomiting, (-) diarrhea, (-) abdominal pain, (-) abdominal distention, (-) constipation, (-) rectal bleeding, (-) dark stool/melena, (-) other documentation Genitourinary: (-) vaginal discharge, (-) vaginal bleeding, (-) dysuria, (-) frequency, (-) hematuria, (-) pain, (-) other documentation Musculoskeletal: (+) Flank Pain Physical Exam General Appearance: (+) no apparent distress Orientation: (+) alert, (+) oriented x 3 Head/Face Trauma: No Eye: bilateral eye normal inspection, bilateral eye PERRL, bilateral eye EOMI Ear, Nose, Throat: (+) hearing grossly normal, (+) normal ENT inspection, (+) moist mucous membraine Neck: (+) normal inspection, (+) supple, (+) no JVD Respiratory: (+) chest non-tender, (+) lungs clear, (+) well ventilated Heart: (+) regular, (+) no gallop Vascular: (+) no edema, (+) normal peripheral pulse Gastrointestinal: (+) soft, (+) non-tender, (+) bowel sound present Back: (+) no vertebral tenderness Back Comment Patient has tenderness along T10 rib left side. No ecchymosis, no broken skin. Results Laboratory and Microbiology Lab and Micro Result Laboratory Tests Test 07/20/25 02:15 Urine Color LIGHT-YELLOW (YELLOW) Urine Appearance CLEAR (CLEAR) Urine pH 5.5 (5.0-8.0) Urine Specific [place] 1.022 (1.001-1.031) Urine Protein NEGATIVE mg/dL (NEGATIVE) Urine Glucose (UA) >=1000 mg/dL (NEGATIVE) H Urine Ketones 5 mg/dL (NEGATIVE) H Urine Occult Blood NEGATIVE (NEGATIVE) Urine Nitrate NEGATIVE (NEGATIVE) Urine Bilirubin NEGATIVE mg/dL (NEGATIVE) Urine Urobilinogen 0.2 mg/dL (0.2-1.0) Urine Leukocyte Esterase 75 Meredith/uL (NEGATIVE) H Urine RBC 0-1 /HPF (0-1) Urine WBC 2-5 /HPF (0-1) H Urine Squamous Epithelial Cells FEW /HPF (0-2) Urine Bacteria None /HPF (None Seen) Urine HCG, Qualitative NEGATIVE (NEGATIVE) MDM Based on patient's abdominal exam and the mechanism of the injury I have very low suspicion for an intra-abdominal injury or a splenic injury. Patient's pain really is along the tract of the teeth 10 rib. I will get plain films of her ribs to rule out a rib fracture. Plain films are negative for fracture. ED Course Orders Procedure Category Date Status Time Ribs Uni Lt W Pa RAD 07/20/25 Taken Chest 3+Vws 01:11 Ketorolac PHA 07/20/25 Complete Tromethamine 30mg/Ml 02:30 ,Urine Test LAB 07/20/25 Complete 02:10 Urinalysis Profile LAB 07/20/25 Complete 02:10 Culture Urine ERICK 07/20/25 In Process 02:28 Current Medications Medications (Trade) Dose Ordered Sig/Jeramy Route PRN Reason Start Time Stop Time Status Last Admin Dose Admin Ketorolac Tromethamine (toRADol) 30 mg ONCE ONCE IVP 07/20/25 02:30 07/20/25 02:31 DC 07/20/25 02:46 Vital Signs Date Time Temp Pulse Resp B/P (MAP) Pulse Ox O2 Delivery O2 Flow Rate FiO2 07/20/25 01:05 98.6 89 16 114/69 100 Room Air* 0 21 07/20/25 00:49 98.6 95 16 116/84 98 Room Air DX & DISP Disposition: Discharge Departure Impression: Primary Impression: Left flank pain Condition: Stable Additional Instructions: X-rays of your left ribcage are negative for fracture. You can control the pain with ibuprofen or Motrin. Motrin works better than narcotics for bony pain. You may have more pain in the morning. Treat it with either warm compresses or with cold compresses. Please follow-up with your primary care physician if the pain does not improve after a week. Referrals: GRACE HULL (PCP) JOANIE PENNY MD Jul 20, 2025 01:26
[2025-07-20 02:27] LABS: ADD UA MICROSCOPIC YES; APPEARANCE,URINE CLEAR (CLEAR); GLUCOSE, URINE (UA) >=1000 mg/dL (NEGATIVE); HCG,QUALITATIVE URINE NEGATIVE (NEGATIVE); LEUKOCYTE ESTERASE ,URINE 75 Leu/uL (NEGATIVE); NITRATE,URINE NEGATIVE (NEGATIVE); OCCULT BLOOD,URINE NEGATIVE (NEGATIVE)
[2025-07-20 02:29] LABS: SQUAMOUS EPITHELIAL CELL,UR FEW /HPF (0-2)
[2025-07-20] MEDS ORDERED: NITR100C PO (03:30)
[2025-07-20 03:44] VITALS: BP 118/69; PULSE 80; RESP 16; TEMP 98.5; O2SAT 99
--- NOTE | 2025-07-20 04:02 | HMCIMG ---
EXAM: CR Chest and Left Ribs, 4 views. CLINICAL HISTORY: Fall. COMPARISON: None provided. FINDINGS: The lungs show no infiltrates or other acute findings. No pleural effusion or pneumothorax. The cardiomediastinal silhouette is within normal limits. No acute osseous abnormality. No acute left rib fractures. IMPRESSION: No acute left rib fracture is evident on radiographic evaluation. If the clinical concern persists, recommend a noncontrast CT chest for further evaluation. No acute cardiopulmonary pathology is evident. /[place]
== END 2025-07-20 03:46 | disposition home or self-care (01) ==
LOC: EDH 00:48
DX: R10.A2 Flank pain, left side (principal); F41.9 Anxiety disorder, unspecified; F32.A Depression, unspecified; E10.9 Type 1 diabetes mellitus without complications; Z79.899 Other long term (current) drug therapy; Z79.85 Long-term (current) use of injectable non-insulin antidiabetic drugs; Z88.1 Allergy status to other antibiotic agents
CPT/HCPCS: 99284; 96374; 87086 ×2; 87186; 81001; 81025; 71101; J1885

== ENCOUNTER 2025-08-29 18:06 | Emergency (ER) | payer MEDICARE, OTHER ==
[~2025-08-29] VITALS: Ht 165.1 cm; Wt 66.7 kg
[~2025-08-29 18:06] MED LIST changes: +NITR100C PO
--- NOTE | 2025-08-29 18:12 | ERN ---
ED Note History of Present Illness Stated Complaint: SUICIDAL IDEATION Chief Complaint: Suicidal Ideation Time Seen by MD: 18:09 Dictation: PATIENT IS A 30-YEAR-OLD FEMALE COMING IN TO THE EMERGENCY ROOM VIA EMS WITH COMPLAINTS OF HAVING SUICIDAL THOUGHTS WITHOUT ANY PLANNED OR REAL AND TENSION OF KILLING HERSELF FOR THE LAST MONTH. SHE STATES SHE HAS BEEN FEELING THIS WAY FOR A LONG TIME SHE SAID SHE HAS LIVED IN THE [facility] FOR FOR YEARS AND WAS HOSPITALIZED AT [facility] LAST YEAR FOR THE SAME COMPLAINT. SHE DOES NOT HAVE A PLAN AT THIS TIME. STATES SHE HAS A HISTORY OF BIPOLAR DISORDER, PTSD, HIGH FUNCTIONING AUTISM. SHE DOES NOT HAVE A DOCTOR. Allergies: Coded Allergies: azithromycin (Unverified Allergy, Unknown, 04/11/24) Home Meds Active Scripts Nitrofurantoin Macrocrystal (Nitrofurantoin) 100 Mg Capsule, 1 CAP PO BID for 7 Days, #14 CAP 0 Refills Prov:JOANIE PENNY MD 07/20/25 Ketorolac Tromethamine (Ketorolac Tromethamine) 10 Mg Tablet, 1 TAB PO BID PRN for pain for 5 Days, #20 TAB 0 Refills Prov:GABINO HOLT MD 06/02/25 Amoxicillin/Potassium Clav (Amox Tr-K Clv 875-125 mg Tab) 875 Mg-125 Mg Tablet, 1 EACH PO BID for 7 Days, #14 TAB 0 Refills Prov:GABINO HOLT MD 06/02/25 Nitrofurantoin Monohyd/M-Cryst (Nitrofurantoin [place]-Mcr 100 mg) 100 Mg Capsule, 1 CAP PO BID for 7 Days, #14 CAP 0 Refills Prov:NAVARRO KELLER MD 06/02/25 Meloxicam (Meloxicam) 15 Mg Tablet, 15 MG PO DAILY PRN for PAIN for 10 Days, #10 TAB Prov:FRANCISCO PATTERSON DO 04/25/25 Acetaminophen with Codeine (Acetaminophen-Cod #3 Tablet) 300 Mg-30 Mg Tablet, 1 TAB PO Q6HPRN PRN for pain for 3 Days, #10 TAB 0 Refills Prov:FRANCISCO PATTERSON DO 04/25/25 Doxycycline Monohydrate (Doxycycline Monohydrate) 100 Mg Capsule, 1 CAP PO BID for 7 Days, #14 CAP 0 Refills Prov:SAUL LONG MD 02/09/25 Reported Medications Insulin Lispro (Humalog) 100 Unit/Ml Cartridge, 0 SQ ACHS, CARTRIDGE 02/08/25 Prazosin HCl (Prazosin HCl) 2 Mg Capsule, 1 CAP PO HS for 30 Days, #30 CAP 0 Refills 02/08/25 Semaglutide (Ozempic) 2 Mg/0.75 Ml (8 Mg/3 Ml) Pen.injctr, 2 MG SQ QWEEK for 30 Days, #3 ML 0 Refills 02/08/25 Gabapentin (Neurontin) 300 Mg Capsule, 300 MG PO TID, CAP 02/08/25 Trazodone HCl (Trazodone HCl) 100 Mg Tablet, 100 MG PO HS, TAB 02/08/25 Venlafaxine HCl (Effexor) 75 Mg Tab, 100 MG PO DAILY, TAB 02/08/25 Past Medical History Past Medical History: Anxiety, Depression, Diabetes-Type I Additional Past Medical Hx: austism Surgical History: None Surgical History Other: ORAL SURGERY AND CONTROL IMPLANT Family History: Negative Social History: Drugs History: Not Applicable RN Note Reviewed/Agreed w/PFSH: Yes Review of System Dictation CONSTITUTIONAL: NEGATIVE EXCEPT FOR HPI HEAD/FACE: NEGATIVE EXCEPT FOR HPI EENT: NEGATIVE EXCEPT FOR HPI RESPIRATORY: NEGATIVE EXCEPT FOR HPI GASTROINTESTINAL/ABDOMINAL: NEGATIVE EXCEPT FOR HPI GENITOURINARY: NEGATIVE EXCEPT FOR HPI MUSCULOSKELETAL: NEGATIVE EXCEPT FOR HPI INTEGUMENTARY: NEGATIVE EXCEPT FOR HPI NEUROLOGICAL/PSYCH: NEGATIVE EXCEPT FOR HPI SUICIDAL IDEATION WITHOUT PLAN HEMATOLOGIC/LYMPHATIC: NEGATIVE EXCEPT FOR HPI ALL SYSTEMS NEGATIVE, EXCEPT NOTED ABOVE. 13 POINT REVIEW OF SYSTEMS ASSESSED AND ALL NEGATIVE EXCEPT FOR ABOVE. Initial Vital Sign VS Vital Signs Date Time Temp Pulse Resp B/P (MAP) Pulse Ox O2 Delivery O2 Flow Rate FiO2 08/29/25 18:10 98.2 97 20 133/86 99 Room Air 08/29/25 19:45 0 21 Physical Exam Dictation VITAL SIGNS REVIEWED GENERAL APPEARANCE: ALERT, ORIENTED X 3, NO ACUTE DISTRESS, WELL DEVELOPED, NOURISHED. HEAD AND FACE: NON-TRAUMATIC. EYES: PERRL, PINK CONJUNCTIVAS, EYELID NO TRAUMA, ANTERIOR CHAMBER WITH ARCUS SENILIS. EARS: PINNAS INTACT AND NO SIGNS OF TRAUMA OR ERYTHEMA EAR CANALS CLEAR AND NO DISCHARGE TM NO ERYTHEMA NOSE: NO DISCHARGE, NO BLEEDING. OROPHARYNX: MOUTH NORMAL, TONGUE PINK, PHARYNX CLEAR,NO ERYTHEMA, TONSILS NO EXUDATES, NO ABSCESSES NOTED, MUCOUS MEMBRANE MOIST NECK: SUPPLE, NON-TENDER, NO THYROMEGALY, NO MASSES, NO JVD, NO BRUITS BREAST:DEFERRED CHEST:NO TENDERNESS, NO CREPITUS, NO PARADOXICAL MOVEMENT, NO RETRACTIONS LUNGS:CLEAR, WELL-VENTILATED, SYMMETRIC, NO RALES, NO WHEEZING, NO RHONCHI, NO STRIDOR, GOOD BREATH SOUNDS BILATERALLY HEART: REGULAR RATE, REGULAR RHYTHM, NO MURMUR, NO GALLOPS VASCULAR: NO PERIPHERAL EDEMA, ABDOMEN: SOFT, POSITIVE BOWEL SOUNDS, NONDISTENDED, NO GUARDING, NONTENDER, NO REBOUND, NO MASSES NO HEPATOMEGALY, NO SPLENOMEGALY, NO VILLALOBOS'S SIGN, NO HERNIAS. RECTAL: DEFERRED GENITAL: DEFERRED NEUROLOGICAL: NORMAL SPEECH, MOTOR FUNCTION INTACT, SENSORY FUNCTION INTACT PATIENT VOICES SUICIDAL IDEATION IDEATION WITHOUT A PLAN. MUSCULOSKELETAL: NECK NONTENDER, FULL RANGE OF MOTION, BACK NONTENDER, FULL RANGE OF MOTION, EXTREMITIES: NONTENDER, FULL RANGE OF MOTION SKIN: COLOR PINK, DRY, NO TURGOR, NO RASH, NO LACERATIONS, NO ABRASIONS, NO CONTUSIONS. LYMPHATIC: DEFERRED Results (Laboratory/Radiology) Laboratory/Radiology Laboratory Tests Test 08/29/25 18:35 08/29/25 18:57 White Blood Count 7.3 K/uL (4.8-10.8) Red Blood Count 4.11 MIL/uL (4.00-5.50) Hemoglobin 12.5 g/dL (12.0-16.0) Hematocrit 36.4 % (36-48) Mean Corpuscular Volume 88.6 fL (79-99) Mean Corpuscular Hemoglobin 30.4 pg (27.0-33.0) Mean Corpuscular Hemoglobin Concent 34.3 g/dL (32.0-36.0) Red Cell Distribution Width 12.6 % (11.0-15.5) Platelet Count 194 K/uL (130-400) Mean Platelet Volume 9.4 fL (7.5-10.5) Immature Granulocyte % (Auto) 0.4 % (0-1) Neutrophils (%) (Auto) 66.1 % (40.0-77.0) Lymphocytes (%) (Auto) 25.4 % (21.0-51.0) Monocytes (%) (Auto) 5.7 % (3.0-13.0) Eosinophils (%) (Auto) 1.7 % (0.0-8.0) Basophils (%) (Auto) 0.7 % (0.0-5.0) Neutrophils # (Auto) 4.8 K/uL (1.8-7.7) Lymphocytes # (Auto) 1.8 K/uL (1.0-4.8) Monocytes # (Auto) 0.4 K/uL (0.1-1.0) Eosinophils # (Auto) 0.12 K/uL (0.00-0.70) Basophils # (Auto) 0.05 K/uL (0.00-0.20) Absolute Immature Granulocyte (auto 0.03 K/uL (0-1) Nucleated Red Blood Cells 0.0 % (0.0-0.19) Sodium Level 131 mmol/L (136-145) L Potassium Level 3.8 mmol/L (3.5-5.1) Chloride Level 99 mmol/L (101-111) L Carbon Dioxide Level 26 mmol/L (21-32) Blood Urea Nitrogen 11 mg/dL (7-18) Creatinine 0.5 mg/dL (0.5-1.0) Glomerular Filtration Rate Calc 130 mL/min (>90) Random Glucose 196 mg/dL (70-105) H Total Calcium 8.9 mg/dL (8.5-10.1) Total Creatine Kinase 44 U/L (21-232) # Serum Test, Qualitative NEGATIVE (NEGATIVE) Salicylates Level < 2.8 mg/dL (2.8-20.0) L Acetaminophen Level < 1 mcg/mL (10-30) L Serum Alcohol < 3 mg/dL (0-10) Urine Color YELLOW (YELLOW) Urine Appearance CLOUDY (CLEAR) H Urine pH 6.0 (5.0-8.0) Urine Specific [place] 1.018 (1.001-1.031) Urine Protein NEGATIVE mg/dL (NEGATIVE) Urine Glucose (UA) >=1000 mg/dL (NEGATIVE) H Urine Ketones 5 mg/dL (NEGATIVE) H Urine Occult Blood MODERATE (NEGATIVE) H Urine Nitrate NEGATIVE (NEGATIVE) Urine Bilirubin NEGATIVE mg/dL (NEGATIVE) Urine Urobilinogen 0.2 mg/dL (0.2-1.0) Urine Leukocyte Esterase 500 Meredith/uL (NEGATIVE) H Urine RBC 2-5 /HPF (0-1) H Urine WBC 6-10 /HPF (0-1) H Urine Squamous Epithelial Cells Rare /HPF (0-2) Urine Bacteria Few /HPF (None Seen) Urine Opiates Screen NEGATIVE (NEGATIVE) Urine Barbiturates Screen NEGATIVE (NEGATIVE) Urine Phencyclidine Screen NEGATIVE (NEGATIVE) Urine Amphetamines Screen NEGATIVE (NEGATIVE) Urine Benzodiazepines Screen NEGATIVE (NEGATIVE) Urine Cocaine Screen NEGATIVE (NEGATIVE) Urine Marijuana (THC) Screen POSITIVE (NEGATIVE) H Labs Reviewed?: Yes ED Course ED Course Orders Procedure Category Date Status Time Drug Screen Urine LAB 08/29/25 Complete 18:09 Cbc With Differential LAB 08/29/25 Complete 18:09 Alcohol, Blood LAB 08/29/25 Complete 18:09 Salicylate LAB 08/29/25 Complete 18:09 Acetaminophen LAB 08/29/25 Complete 18:09 Testing, LAB 08/29/25 Complete Serum Hcg 18:09 Urinalysis Profile LAB 08/29/25 Complete 18:09 Creatine Kinase, Total LAB 08/29/25 Complete 18:09 Basic Metabolic Panel LAB 08/29/25 Complete 18:09 Culture Urine ERICK 08/29/25 In Process 19:05 Amox/Clav 875/125mg PHA 08/29/25 Complete Tab (Augmentin 875-1 20:00 Current Medications Medications (Trade) Dose Ordered Sig/Jeramy Route PRN Reason Start Time Stop Time Status Last Admin Dose Admin Amoxicillin/ Clavulanate Potassium (Augmentin 875-125 Tablet) 1 each ONCE ONCE PO 08/29/25 20:00 08/29/25 20:01 DC 08/29/25 20:21 Vital Signs Date Time Temp Pulse Resp B/P (MAP) Pulse Ox O2 Delivery O2 Flow Rate FiO2 08/29/25 19:45 98.1 96 16 116/80 99 Room Air* 0 21 08/29/25 18:10 98.2 97 20 133/86 99 Room Air 2030/PATIENT IS MEDICALLY STABLE FOR PSYCHIATRIC EVALUATION. SCREENER IS HERE TO TALK TO HER. AUGMENTIN WAS GIVEN FOR UTI PATIENT HAS A SITTER AT THE [id number]/ 2150/PATIENT WAS SEEN AND EVALUATED BY THE PSYCHIATRIC SCREENER AND DOES NOT MEET CRITERIA FOR INPATIENT HOSPITALIZATION. SHE AGREED TO FOLLOW UP OUTPATIENT. SHE WILL BE DISCHARGED HOME WITH THE ANTIBIOTICS FOR HER UTI ALL QUESTIONS ANSWERED Medical Decision Making MDM MDM: DIFFERENTIAL DIAGNOSIS: DRUG ABUSE/SUICIDAL IDEATION/DEPRESSION/ELECTROLYTE I MBALANCE/DEHYDRATION/UTI/INTOXICATION RATIONALE: TESTS CONSIDERED AND ORDERED SECONDARY TO SHARED DECISION MAKING INCLUDE: LABS PREVIOUS OUTSIDE RECORDS REVIEWED: OLD ER VISITS. RISK OF COMPLICATION AND/OR MORBIDITY OR MORTALITY OF PATIENT MANAGEMENT: NONE MEDICATIONS-PER MEDICATION RECONCILIATION NEED FOR HOSPITALIZATION: PATIENT DOES NOT MEET CRITERIA FOR HOSPITALIZATION. NONE NEED FOR EMERGENCY MAJOR/MINOR SURGERY: NO THERE ARE NO SOCIAL CONCERNS WITH THIS PATIENT. MARIJUANA USE PRESCRIPTION DRUG MANAGEMENT AUGMENTIN PRESCRIPTIONS WILL INCLUDE SYMPTOMATIC CARE PATIENT'S PRIOR EXTERNAL MEDICAL RECORDS FROM OTHER ER VISITS WERE REVIEWED BY ME INDICATED. PRIOR TESTING AND RESULTS FROM PREVIOUS VISITS WERE REVIEWED. PRIOR TESTS WERE TAKEN INTO ACCOUNT WITH MEDICAL DECISION MAKING AND RESOURCE UTILIZATION, INDEPENDENT HISTORIAN/HISTORIANS WERE USED TO OBTAIN COMPLETE MEDICAL HISTORY. I INDEPENDENTLY INTERPRETED THE TEST THAT WERE PERFORMED, RESULTS WERE REVIEWED BY ME AND CONSIDERED FINDINGS ON RADIOLOGY IF ORDERED. MEDICAL MANAGEMENT AND EXAMINATION INTERPRETATION DISCUSSIONS WERE HAD BY ME WITH OTHER QUALIFIED HEALTHCARE PROFESSIONALS INDICATED FOR THE PATIENT'S CARE. DX & DISP Disposition: Discharge Departure Impression: Primary Impression: Passive suicidal ideations Additional Impressions: Acute UTI, Marijuana smoker, Hyponatremia, Hypochloremia, Diabetes mellitus with hyperglycemia Condition: Stable Scripts Amoxicillin/Potassium Clav (Amox Tr-K Clv 875-125 mg Tab) 875 Mg-125 Mg Tablet 1 EACH PO BID for 7 Days, #14 TAB 0 Refills Prov: JAYSON PIERRE [facility] 08/29/25 Additional Instructions: FOLLOW-UP WITH PRIMARY CARE PROVIDER IN 1 TO 2 DAYS. TAKE MEDICATIONS DIRECTED HERE IN THE EMERGENCY ROOM. OKAY TO CONTINUE HOME MEDICATIONS UNLESS OTHERWISE DISCUSSED DURING YOUR VISIT IN THE EMERGENCY ROOM TODAY. RETURN TO YOUR NEAREST EMERGENCY ROOM IF SYMPTOMS WORSEN OR IF THERE IS NO IMPROVEMENT. CALL 911 IF YOU NEED IMMEDIATE ASSISTANCE. TAKE TYLENOL OR MOTRIN [id number] NEEDED AND IF NO CONTRAINDICATIONS ARE PRESENT. INCREASE ORAL HYDRATION. A WOUND CULTURE OR URINE CULTURE WAS ORDERED HERE IN THE EMERGENCY ROOM DEPARTMENT PLEASE FOLLOW-UP WITH PRIMARY CARE PROVIDER AND ADVISE THEM TO GET REPEAT PORTS FROM OUR FACILITY. IF YOU HAD ANY VANDANA WRAP/SPLINTS THAT WERE APPLIED HERE, PLEASE DO NOT REMOVE THEM UNTIL YOU SEE YOUR PRIMARY CARE OR SPECIALTY. DIET AND ACTIVITY TOLERATED. TAKE AUGMENTIN DIRECTED UNTIL GONE. INCREASE YOUR WATER INTAKE. FOLLOW UP OUTPATIENT IN THE NEXT 1-2 DAYS Referrals: GRACE HULL (PCP) Time of Disposition: 20:34 I have reviewed the case, and I agree with, Diagnosis and Plan JAYSON PIERRE STOCK COUNTER Aug 29, 2025 18:12
[2025-08-29 18:47] LABS: IMMATURE GRANULOCYTE ABSOLUTE 0.03 K/uL (0-1); NUCLEATED RED BLOOD CELLS 0.0 % (0.0-0.19); PLATELET COUNT (AUTO) 194 K/uL (130-400); RED BLOOD CELL COUNT(AUTO) 4.11 MIL/uL (4.00-5.50); RED CELL DISTRIBUTION WIDTH 12.6 % (11.0-15.5); WHITE BLOOD COUNT (AUTO) 7.3 K/uL (4.8-10.8)
[2025-08-29 18:55] LABS: CREATININE 0.5 mg/dL (0.5-1.0); GLOMERULAR FILTR. RATE CALC 130 mL/min (>90); GLUCOSE,RANDOM 196 mg/dL (70-105); SODIUM SERUM 131 mmol/L (136-145); UREA NITROGEN, BLOOD 11 mg/dL (7-18)
[2025-08-29 19:00] LABS: ALCOHOL, BLOOD < 3 mg/dL (0-10); CREATINE KINASE, TOTAL 44 U/L (21-232)
[2025-08-29 19:05] LABS: ADD UA MICROSCOPIC YES; APPEARANCE,URINE CLOUDY (CLEAR); GLUCOSE, URINE (UA) >=1000 mg/dL (NEGATIVE); LEUKOCYTE ESTERASE ,URINE 500 Leu/uL (NEGATIVE); NITRATE,URINE NEGATIVE (NEGATIVE); OCCULT BLOOD,URINE MODERATE (NEGATIVE)
[2025-08-29 19:12] LABS: SQUAMOUS EPITHELIAL CELL,UR Rare /HPF (0-2)
--- NOTE | 2025-08-29 19:15 | NUR ---
PATIENT ON ONE TO ONE.
[2025-08-29 19:27] LABS: AMPHET/METH SCREEN,URINE NEGATIVE (NEGATIVE); BARBITURATE SCREEN, URINE NEGATIVE (NEGATIVE); CANNABINOID SCREEN,URINE POSITIVE (NEGATIVE); COCAINE SCREEN,URINE NEGATIVE (NEGATIVE)
--- NOTE | 2025-08-29 19:35 | NUR ---
[facility] CRISIS LINE CONTACTED, PENDING FOR SCREENER TO COME IN AND EVALUATE PATIENT.
[2025-08-29] MEDS: AMOX/CLAV 875/125MG TAB PO ONE (20:21)
--- NOTE | 2025-08-29 20:21 | NUR ---
ANTIBIOTIC MEDICATIONS GIVEN. PATIENT UPDATED ON PENDING ARRIVAL OF [facility] SCREENER. ONE TO ONE SITTER AT BEDSIDE
--- NOTE | 2025-08-29 20:35 | NUR ---
JAIDEN HERNANDEZ SCREENER HERE TO EVALUATE PATIENT
--- NOTE | 2025-08-29 21:23 | NUR ---
[facility] SCREENER CONTINUES TO EVALUATE PATIENT
[2025-08-29] MEDS ORDERED: AMOX1TAB16 PO (21:51)
[2025-08-29 21:59] VITALS: BP 122/78; PULSE 88; RESP 16; TEMP 98.1; O2SAT 99
--- NOTE | 2025-08-29 22:00 | NUR ---
PATIENT DID NOT MEET INPATIENT CRITERIA. [facility] WILL FOLLOW UP WITH THE PATIENT TOMORROW.
--- NOTE | 2025-08-29 22:02 | NUR ---
SECURITY CALLED TO BRING PATIENT HER BELOGNINGS.
--- NOTE | 2025-08-29 22:04 | NUR ---
SECURITY AT BEDSIDE RETURNING PATIENT HER BELONGINGS
== END 2025-08-29 22:07 | disposition home or self-care (01) ==
LOC: EEVIPCON 18:06 → EDH 18:06
DX: R45.851 Suicidal ideations (principal); E10.65 Type 1 diabetes mellitus with hyperglycemia; E87.1 Hypo-osmolality and hyponatremia; N39.0 Urinary tract infection, site not specified; F12.90 Cannabis use, unspecified, uncomplicated; E87.8 Other disorders of electrolyte and fluid balance, not elsewhere classified; F31.9 Bipolar disorder, unspecified; F41.9 Anxiety disorder, unspecified; Z88.1 Allergy status to other antibiotic agents; Z79.899 Other long term (current) drug therapy; Z79.85 Long-term (current) use of injectable non-insulin antidiabetic drugs
CPT/HCPCS: 99285; 82550; 80048; 80305; 84703; 85025; 87086; 36415; 81001; G0481; 99283